=== PATIENT | female | born 1940 | race Caucasian/White ===

== ENCOUNTER 2017-04-24 10:28 | Inpatient (IN) | payer MEDICARE, BC ==
--- NOTE | 2017-04-24 11:30 | EDM.PDOC ---
[id number] 4d DIZZINESS Time Seen by Provider: 04/24/17 11:15 Source of Information: Reports: Patient, Family History Limitations: Reports: No Limitations - History of Present Illness INITIAL COMMENTS - FREE TEXT/NARRATIVE: 76-year-old female sent in from the clinic because of one month of dizziness, hypertension, intermittent headaches, intermittent confusion and a history of renal insufficiency. She had similar symptoms this winter all visiting her daughter out of state and was found to have a UTI. Her primary felt a CT of her head and further labs would be worthwhile. The patient now in the emergency room seems alert, comfortable, oriented but does have some mild confusion and mild hesitancy with answering questions. Her blood pressure is 200/66. They do check her blood pressure fairly frequently at home and her systolic tends to run around 180 Onset: Unknown/Unsure Severity: Mild Associated Symptoms: Reports: Headaches, Nausea/Vomiting, Other (Intermittent dizziness). Denies: Fever/Chills, Shortness of Breath Headache Pain Score (Numeric/FACES): 5 - Related Data Allergies Allergy/AdvReac Type Severity Reaction Status Date / Time atorvastatin [From Lipitor] Allergy Dizziness Verified 04/24/17 10:54 Home Meds: Home Meds Apixaban [Eliquis] 5 mg PO BID 04/24/17 [History] Aspirin [Halfprin] 81 mg PO DAILY 04/24/17 [History] Brimonidine [Alphagan P 0.15% Ophth Soln] 1 drop EYEBOTH BID 04/24/17 [History] Carvedilol 1 tab PO BID 04/24/17 [History] Digoxin 125 mcg PO DAILY 04/24/17 [History] Insulin Aspart [Novolog Flexpen] 4 units SUBCUT TID 04/24/17 [History] Losartan [Cozaar] 50 mg PO BID 04/24/17 [History] Pantoprazole [ProTONIX] 40 mg PO DAILY 04/24/17 [History] Timolol Maleate/PF [Timoptic 0.5% Ocudose Drop] 1 drop EYEBOTH DAILY 04/24/17 [ History] metFORMIN [Glucophage] 500 mg PO DAILY 04/24/17 [History] Past Medical History HEENT History: Reports: Glaucoma Cardiovascular History: Reports: Afib, Hypertension Gastrointestinal History: Reports: GERD Genitourinary History: Reports: UTI, Recurrent Endocrine/Metabolic History: Reports: Diabetes, Type II - Infectious Disease History Infectious Disease History: Reports: Chicken Pox, Measles, Mumps - Past Surgical History GI Surgical History: Reports: Appendectomy, Cholecystectomy, Colostomy Social & Family History - Tobacco Use Smoking Status *Q: Never Smoker Second Hand Smoke Exposure: No - Caffeine Use Caffeine Use: Reports: Soda - Recreational Drug Use Recreational Drug Use: No ED ROS GENERAL - Review of Systems Review Of Systems: See Below Constitutional: Denies: Fever, Chills, Malaise HEENT: Reports: Rhinitis (Persistent runny nose during the spring) Respiratory: Denies: Shortness of Breath, Cough Cardiovascular: Denies: Chest Pain GI/Abdominal: Reports: Nausea, Vomiting (She's had 2 episodes of vomiting over the last few days). Denies: Abdominal Pain Skin: Reports: No Symptoms Neurological: Reports: Dizziness, Headache Psychiatric: Reports: Confusion ED EXAM, GENERAL - Physical Exam Exam: See Below Exam Limited By: No Limitations General Appearance: Alert, No Apparent Distress Eye Exam: Bilateral Eye: Normal Inspection, PERRL Head: Atraumatic Respiratory/Chest: No Respiratory Distress Cardiovascular: Irregularly Irregular. No: Tachycardia Neurological: Alert, Oriented, No Motor/Sensory Deficits Psychiatric: Normal Affect, Normal Mood Skin Exam: Warm Course - Vital Signs Last Recorded V/S: Last Vital Signs Temp 97.1 F 04/25/17 11:07 Pulse 70 04/25/17 11:07 Resp 16 04/25/17 11:07 BP 165/64 H 04/25/17 11:07 Pulse Ox 97 04/25/17 11:07 - Orders/Labs/Meds Orders: Active Orders 24 hr Category Date Time Status CULTURE URINE [RM] Stat Lab 04/24/17 12:45 Results Medication Orders Acetaminophen (Tylenol) 650 mg PO Q4H PRN PRN Reason: Pain (Mild 1-3)/fever Last Admin: 04/25/17 07:59 Dose: 650 mg Apixaban (Eliquis) 5 mg PO BID [facility] Last Admin: 04/25/17 08:01 Dose: 5 mg Admin: 04/24/17 21:03 Dose: 5 mg Aspirin (Halfprin) 81 mg PO DAILY [facility] Last Admin: 04/25/17 08:02 Dose: 81 mg Brimonidine Tartrate (Alphagan P 0.15% Oph Soln) 0 ml EYEBOTH BID [facility] Last Admin: 04/25/17 08:09 Dose: 1 drop Admin: 04/24/17 21:02 Dose: 1 drop Carvedilol (Coreg) 12.5 mg PO BIDMEALS [facility] Last Admin: 04/25/17 08:01 Dose: 12.5 mg Admin: 04/24/17 17:05 Dose: 12.5 mg Dextrose (Glutose 15) 15 gm PO ONETIME PRN PRN Reason: Hypoglycemia Dextrose/Water (Dextrose 50% In Water) 50 ml IV ONETIME PRN PRN Reason: Hypoglycemia Digoxin (Lanoxin) 125 mcg PO DAILY [facility] Last Admin: 04/25/17 08:02 Dose: 125 mcg Docusate Sodium (Colace) 100 mg PO BID PRN PRN Reason: Constipation Hydralazine HCl (Apresoline) 10 mg IVPUSH Q2H PRN PRN Reason: Hypertension Last Admin: 04/25/17 08:02 Dose: 10 mg Admin: 04/25/17 05:06 Dose: 10 mg Admin: 04/25/17 02:37 Dose: 10 mg Admin: 04/24/17 18:41 Dose: 10 mg Hydralazine HCl (Apresoline) 10 mg PO Q6H [facility] Last Admin: 04/25/17 11:05 Dose: 10 mg Sodium Chloride (Normal Saline) 1,000 mls @ 125 mls/hr IV ASDIRECTED [facility] Last Admin: 04/25/17 11:07 Dose: 125 mls/hr Insulin Aspart (Novolog) 4 unit SUBCUT TID [facility] Last Admin: 04/25/17 11:03 Dose: 4 units Admin: 04/24/17 21:03 Dose: 4 units Admin: 04/24/17 17:03 Dose: Not Given Insulin Aspart (Novolog) 0 unit SUBCUT ASDIRECTED [facility] PRN Reason: Protocol Losartan Potassium (Cozaar) 50 mg PO BID [facility] Last Admin: 04/25/17 08:01 Dose: 50 mg Admin: 04/24/17 21:03 Dose: 50 mg Magnesium Hydroxide (Milk Of Magnesia) 30 ml PO Q12H PRN PRN Reason: Constipation Ondansetron HCl (Zofran) 4 mg IV Q4H PRN PRN Reason: Nausea/Vomiting Last Admin: 04/24/17 21:00 Dose: 4 mg Admin: 04/24/17 17:01 Dose: 4 mg Oxycodone HCl (Oxycodone) 5 mg PO Q4H PRN PRN Reason: Pain (moderate 4-6) Pantoprazole Sodium (Protonix) 40 mg PO ACBREAKFAST [facility] Last Admin: 04/25/17 08:03 Dose: 40 mg Polyethylene Glycol (Miralax) 17 gm PO DAILY PRN PRN Reason: Constipation Sodium Chloride (Saline Flush) 10 ml FLUSH ASDIRECTED PRN PRN Reason: Keep Vein Open Timolol Maleate (Timoptic 0.5% Ophth Soln) 0 ml EYEBOTH BEDTIME [facility] Labs: Laboratory Tests 04/24/17 04/24/17 04/24/17 Range/Units 11:28 11:41 11:41 WBC 10.7 (4.5-11.0) K/uL RBC 3.64 (3.30-5.50) M/uL Hgb 11.4 L (12.0-15.0) g/dL Hct 34.8 L (36.0-48.0) % MCV 96 (80-98) fL MCH 31 (27-31) pg MCHC 33 (32-36) % Plt Count 157 (150-400) K/uL Neut % (Auto) 86 H (36-66) % Lymph % (Auto) 8 L (24-44) % [place] % (Auto) 5 (2-6) % Eos % (Auto) 1 L (2-4) % Baso % (Auto) 0 (0-1) % Sodium 133 L (140-148) mmol/L Potassium 4.8 (3.6-5.2) mmol/L Chloride 99 L (100-108) mmol/L Carbon Dioxide 25 (21-32) mmol/L Anion Gap 13.8 (5.0-14.0) mmol/L BUN 39 H (7-18) mg/dL Creatinine 2.5 H (0.6-1.0) mg/dL Est Cr Clr Drug Dosing 16.08 mL/min Estimated GFR (MDRD) 19 L (>60) Glucose 129 H (74-106) mg/dL Calcium 9.4 (8.5-10.1) mg/dL Total Bilirubin 1.2 H (0.2-1.0) mg/dL AST 24 (15-37) U/L ALT 27 (12-78) U/L Alkaline Phosphatase 97 (46-116) U/L Total Protein 7.5 (6.4-8.2) g/dL Albumin 3.7 (3.4-5.0) g/dL Globulin 3.8 H (2.3-3.5) g/dL Albumin/Globulin Ratio 1.0 L (1.2-2.2) Urine Color Yellow Urine Appearance Slightly cloudy Urine pH 5.0 (4.5-8.0) Ur Specific [place] 1.015 (1.008-1.030) Urine Protein Trace (NEGATIVE) mg/dL Urine Glucose (UA) Normal (NEGATIVE) mg/dL Urine Ketones Negative (NEGATIVE) mg/dL Urine Occult Blood Moderate (NEGATIVE) Urine Nitrite Negative (NEGATIVE) Urine Bilirubin Negative (NEGATIVE) Urine Urobilinogen Normal (NORMAL) mg/dL Ur Leukocyte Esterase Negative (NEGATIVE) Urine RBC 0-5 (0-5) Urine WBC 10-20 H (0-5) Ur Epithelial Cells Few Amorphous Sediment Few Urine Bacteria Moderate Urine Mucus Not seen Meds: Medications Generic Name Dose Route Start Last Admin Trade Name Freq PRN Reason Stop Dose Admin Acetaminophen 650 mg 04/24/17 16:09 04/25/17 07:59 Tylenol PO 650 mg Q4H PRN Administration Pain (Mild 1-3)/fever Apixaban 5 mg 04/24/17 21:00 04/25/17 08:01 Eliquis PO 5 mg BID [facility] Administration Aspirin 81 mg 04/25/17 09:00 04/25/17 08:02 Halfprin PO 81 mg DAILY [facility] Administration Brimonidine Tartrate 0 ml 04/24/17 21:00 04/25/17 08:09 Alphagan P 0.15% Ophth Soln EYEBOTH 1 drop BID [facility] Administration Carvedilol 12.5 mg 04/24/17 17:00 04/25/17 08:01 Coreg PO 12.5 mg BIDMEALS [facility] Administration Dextrose 15 gm 04/24/17 16:09 Glutose 15 PO ONETIME PRN Hypoglycemia Dextrose/Water 50 ml 04/24/17 16:09 Dextrose 50% In Water IV ONETIME PRN Hypoglycemia Digoxin 125 mcg 04/25/17 09:00 04/25/17 08:02 Lanoxin PO 125 mcg DAILY [facility] Administration Docusate Sodium 100 mg 04/24/17 16:09 Colace PO BID PRN Constipation Hydralazine HCl 10 mg 04/24/17 16:35 04/25/17 08:02 Apresoline IVPUSH 10 mg Q2H PRN Administration Hypertension Hydralazine HCl 10 mg 04/25/17 10:00 04/25/17 11:05 Apresoline PO 10 mg Q6H [facility] Administration Sodium Chloride 1,000 mls @ 125 mls/hr 04/24/17 16:09 04/25/17 11:07 Normal Saline IV 125 mls/hr ASDIRECTED [facility] Administration Insulin Aspart 4 unit 04/24/17 17:00 04/25/17 11:03 Novolog SUBCUT 4 units TID [facility] Administration Insulin Aspart 0 unit 04/24/17 16:09 Novolog SUBCUT ASDIRECTED [facility] Protocol Losartan Potassium 50 mg 04/24/17 21:00 04/25/17 08:01 Cozaar PO 50 mg BID [facility] Administration Magnesium Hydroxide 30 ml 04/24/17 16:09 Milk Of Magnesia PO Q12H PRN Constipation Ondansetron HCl 4 mg 04/24/17 16:09 04/24/17 21:00 Zofran IV 4 mg Q4H PRN Administration Nausea/Vomiting Oxycodone HCl 5 mg 04/24/17 16:09 Oxycodone PO Q4H PRN Pain (moderate 4-6) Pantoprazole Sodium 40 mg 04/25/17 07:30 04/25/17 08:03 Protonix PO 40 mg ACBREAKFAST [facility] Administration Polyethylene Glycol 17 gm 04/24/17 16:09 Miralax PO DAILY PRN Constipation Sodium Chloride 10 ml 04/24/17 16:09 Saline Flush FLUSH ASDIRECTED PRN Keep Vein Open Timolol Maleate 0 ml 04/25/17 21:00 Timoptic 0.5% Ophth Soln EYEBOTH BEDTIME [facility] Discontinued Medications Generic Name Dose Route Start Last Admin Trade Name Freq PRN Reason Stop Dose Admin Acetaminophen 1,000 mg 04/24/17 12:20 04/24/17 12:45 Tylenol Extra Strength PO 04/24/17 12:21 1,000 mg ONETIME ONE Administration Hydralazine HCl 10 mg 04/24/17 13:33 04/24/17 14:14 Apresoline IVPUSH 04/24/17 13:34 10 mg ONETIME ONE Administration Hydralazine HCl 10 mg 04/24/17 16:09 Apresoline IVPUSH Q4H PRN Hypertension Sodium Chloride 1,000 mls @ 500 mls/hr 04/24/17 13:00 04/24/17 13:17 Normal Saline IV 500 mls/hr ASDIRECTED [facility] Administration Ondansetron HCl 4 mg 04/24/17 12:19 04/24/17 12:23 Zofran Odt PO 04/24/17 12:20 4 mg ONETIME ONE Administration Timolol Maleate 0 ml 04/25/17 09:00 04/25/17 09:28 Timoptic 0.5% Ophth Soln EYEBOTH Not Given DAILY [facility] - Re-Assessments/Exams Free Text/Narrative Re-Assessment/Exam: 04/24/17 12:03 A UA was obtained, along with a CBC, CMP and head CT. It was confirmed that she has taken her blood pressure medications this morning. 04/24/17 13:01 UA showed 10-20 WBCs and moderate bacteria. A culture was initiated. Head CT was negative. CMP was concerning as her GFR is only 19, and creatinine is 2.5, both are significantly worse than recent levels tested at the clinic within the last month. Patient has not had a lot of vomiting but does say she could be "dehydrated" and the family admits she doesn't drink or eat very well. 04/24/17 13:02 Normal saline was initiated at 500 mL an hour and I talked to Dr. Mariee of the hospitalist service to consider hydrating the patient overnight and rechecking renal function. This would also give us an opportunity to monitor blood pressure. Departure - Departure Time of Disposition: 16:25 Disposition: Admitted As Inpatient 67 Condition: fair Clinical Impression: Generalized headaches Renal failure Qualifiers: Renal failure chronicity: acute on chronic Acute renal failure type: unspecified Chronic kidney disease stage: stage 4 (severe) Qualified Code(s): N17.9 - Acute kidney failure, unspecified Hypertension Qualifiers: Hypertension type: unspecified secondary hypertension Qualified Code(s): I15.9 - Secondary hypertension, unspecified - Discharge Information - My Orders Last 24 Hours: My Active Orders 04/24/17 12:45 CULTURE URINE [RM] Stat - Assessment/Plan Last 24 Hours: My Active Orders 04/24/17 12:45 CULTURE URINE [RM] Stat
--- NOTE | 2017-04-24 12:02 | CT ---
CT head without contrast. Indication: Confusion, headaches. Total DLP 655 Findings: No hemorrhage. No mass effect or midline shift. Hypodensities are in the periventricular w angie matter which can be seen in chronic small vessel ischemic disease. Vascular calcifications. Mil d lateral view. Mastoid air cells are clear. Impression: 1. No acute intracranial process by CT.
[2017-04-24] MEDS ORDERED: Ondansetron 4 MG Tab.DIS PO ONE (12:19)
[2017-04-24] MEDS ORDERED: Acetaminophen 500 MG Tab PO ONE (12:20)
[2017-04-24] MEDS ORDERED: Sodium Chloride 0.9% 1,000 ML IV SCH (13:00)
[2017-04-24] MEDS ORDERED: hydrALAZINE 20 MG/ML SDV IVPUSH ONE (13:33)
[2017-04-24] MEDS ORDERED: hydrALAZINE 20 MG/ML SDV IVPUSH PRN (16:09)
[2017-04-24] MEDS ORDERED: Polyethylene Glycol 3350 Powder 17 GM Packet PO PRN (16:09)
[2017-04-24] MEDS ORDERED: Magnesium Hydroxide 400 MG/5 ML Susp 30 ML Cup PO PRN (16:09)
[2017-04-24] MEDS ORDERED: Glucose Gel 15 GM in 37.5 GM Tube PO PRN (16:09)
[2017-04-24] MEDS ORDERED: Sodium Chloride 0.9% 10 ML Syringe FLUSH PRN (16:09)
[2017-04-24] MEDS ORDERED: 50% Dextrose in Water 50 ML Syringe IV PRN (16:09)
[2017-04-24] MEDS ORDERED: Acetaminophen 325 MG Tab PO PRN (16:09)
[2017-04-24] MEDS ORDERED: oxyCODONE 5 MG Tab PO PRN (16:09)
[2017-04-24] MEDS ORDERED: Docusate Sodium 100 MG Cap PO PRN (16:09)
--- NOTE | 2017-04-24 16:09 | PCM.HP ---
H&P History of Present Illness - General Date of Service: 04/24/17 Admit Problem/Dx: Admission Diagnosis/Problem Admission Diagnosis/Problem Hypertension screen Source of Information: Patient, Provider, RN Notes Reviewed History Limitations: Reports: No Limitations - History of Present Illness Initial Comments - Free Text/Narative: Is patient is a 76-year-old woman who is admitted through the emergency department for further evaluation and management of acute on chronic renal insufficiency as well as uncontrolled hypertension. Patient is somewhat vague in her answers and appears to have at least some degree of mild cognitive impairment. There is a history that she's had intermittent episodes of confusion over the past few weeks. She does monitor her blood pressure at home but recently her monitor has not been able. Blood pressure. She was seen and evaluated in the clinic today and noted to have marked hypertension as well is the recent episodes of confusion. She was referred to the emergency department for further evaluation, CT scan of the head was obtained and showed no acute abnormalities. Blood pressure was found to be markedly elevated and laboratory studies show worsening of her renal function with a creatinine in the range of 2.7 and GFR of 19. Urine did show some bacteria and elevation white blood cell count but her urine nitrate and leukocyte esterase were both within normal range. Does report also intermittent episodes of headache and nausea and vomiting occurring on a daily basis usually mid morning. There has been no abdominal pain, no other neurologic symptoms, and no chest pain or shortness of breath. Headache Pain Score (Numeric/FACES): 5 - Related Data Allergies/Adverse Reactions: Allergies Allergy/AdvReac Type Severity Reaction Status Date / Time atorvastatin [From Lipitor] Allergy Dizziness Verified 04/24/17 10:54 Home Medications: Home Meds Apixaban [Eliquis] 5 mg PO BID 04/24/17 [History] Aspirin [Halfprin] 81 mg PO DAILY 04/24/17 [History] Brimonidine [Alphagan P 0.15% Ophth Soln] 1 drop EYEBOTH BID 04/24/17 [History] Carvedilol 1 tab PO BID 04/24/17 [History] Digoxin 125 mcg PO DAILY 04/24/17 [History] Insulin Aspart [Novolog Flexpen] 4 units SUBCUT TID 04/24/17 [History] Losartan [Cozaar] 50 mg PO BID 04/24/17 [History] Pantoprazole [ProTONIX] 40 mg PO DAILY 04/24/17 [History] Timolol Maleate/PF [Timoptic 0.5% Ocudose Drop] 1 drop EYEBOTH DAILY 04/24/17 [ History] metFORMIN [Glucophage] 500 mg PO DAILY 04/24/17 [History] Past Medical History HEENT History: Reports: Glaucoma Cardiovascular History: Reports: Afib, Hypertension Gastrointestinal History: Reports: GERD Genitourinary History: Reports: UTI, Recurrent Endocrine/Metabolic History: Reports: Diabetes, Type II - Infectious Disease History Infectious Disease History: Reports: Chicken Pox, Measles, Mumps - Past Surgical History GI Surgical History: Reports: Appendectomy, Cholecystectomy, Colostomy Social & Family History - Tobacco Use Smoking Status *Q: Never Smoker Second Hand Smoke Exposure: No - Caffeine Use Caffeine Use: Reports: Soda - Recreational Drug Use Recreational Drug Use: No H&P Review of Systems - Review of Systems: Review Of Systems: See Below General: Denies: Fever, Chills, Weakness, Fatigue HEENT: Reports: Headaches Pulmonary: Reports: No Symptoms Cardiovascular: Reports: No Symptoms Gastrointestinal: Reports: Nausea, Vomiting. Denies: Abdominal Pain, Black Stool, Bloody Stool, Constipation, Diarrhea, Decreased Appetite Genitourinary: Reports: No Symptoms Musculoskeletal: Reports: No Symptoms Skin: Reports: No Symptoms Psychiatric: Reports: No Symptoms Neurological: Reports: Confusion, Headache. Denies: Dizziness, Pre-Existing Deficit, Seizure, Syncope Hematologic/Lymphatic: Reports: No Symptoms Immunologic: Reports: No Symptoms Exam - Exam Exam: See Below - Vital Signs Vital Signs: Last Vital Signs Temp 96 F 04/24/17 10:57 Pulse 59 L 04/24/17 15:01 Resp 16 04/24/17 14:21 BP 202/70 H 04/24/17 15:01 Pulse Ox 97 04/24/17 15:01 Weight: 133 lb 6.075 oz - Exam Quality Assessment: DVT Prophylaxis General: Alert, Oriented, Cooperative HEENT: Conjunctiva Clear, EOMI, Hearing Intact, Mucosa Moist & [place], Nares Patent, Normal Nasal Septum, Posterior Pharynx Clear, Pupils Equal, Pupils Reactive, Other (Fundoscopic examination was unremarkable) Neck: Supple, Trachea Midline, +2 Carotid Pulse wo Bruit Lungs: Clear to Auscultation, Normal Respiratory Effort Cardiovascular: Regular Rate, Normal S1, Normal S2, Irregular Rhythm. No: Bradycardia, Tachycardia, Systolic Murmur, Diastolic Murmur Abdomen: Normal Bowel Sounds, Soft Back Exam: Normal Inspection, Full Range of Motion, NT Extremities: 3, Normal Inspection, 10 Skin: Warm, Dry, Intact Neurological: Cranial Nerves Intact, Strength Equal Bilateral, Sensation Intact. No: Focal Deficit Neuro Extensive - Mental Status: Alert, Oriented x3, Normal Mood/Affect, Memory Loss-Recent Events. No: Disorientation to Person, Disorientation to Place, Disorientation to Time, Memory Loss-Remote Events - Patient Data Result Diagrams: 04/24/17 11:41 04/24/17 11:41 *Q Meaningful Use (ADM) - VTE *Q VTE Criteria *Q: - VTE Risk Assess *Q Each Risk Factor Represents 1 Point: None Total Score 1 Point Risk Factors: 0 Each Risk Factor Represents 2 Points: None Total Score 2 Point Risk Factors: 0 Each Risk Factor Represents 3 Points: Age 75 Years or Greater Total Score 3 Point Risk Factors: 3 Each Risk Factor Represents 5 Points: None Total Score 5 Point Risk Factors: 0 Venous Thromboembolism Risk Factor Score *Q: 3 - Stroke *Q Stroke Criteria *Q: - AMI *Q AMI Criteria *Q: Problem List Initiated/Reviewed/Updated: Yes Orders Last 24hrs: Active Orders 24 hr Category Date Time Status Resuscitation Status Routine Resus Stat 04/24/17 13:28 Ordered Medication Orders Sodium Chloride (Normal Saline) 1,000 mls @ 500 mls/hr IV ASDIRECTED [facility] Last Admin: 04/24/17 13:17 Dose: 500 mls/hr Assessment/Plan Comment:: ASSESSMENT AND PLAN UNCONTROLLED HYPERTENSION-I suspect many of her recent symptoms including headache as well as episodes of confusion may be related to marked elevation in blood pressure. Also possible that the nausea and vomiting she is experienced is related to this. She's had a long-standing history of high blood pressure but more recently it has been significantly elevated and associated with worsening of her renal function. -Continue outpatient therapy with Coreg and losartan -Hydralazine 10 mg IV every 4 hours as needed -TSH in a.m. -24-hour urine for aldosterone and catecholamines -Renal ultrasound with Doppler flow studies of the renal arteries, she's not currently a candidate for CTA or MRA because of renal dysfunction. ACUTE ON CHRONIC KIDNEY INJURY-suspect at least some of this is related to her recent uncontrolled blood pressure. -Ultrasound as above -IV fluids for hydration -Closely monitor urine output and renal function during hospital stay EPISODIC CONFUSION-on examination today she does seem to be somewhat vague and having difficulty in remembering recent events. She may be developing dementia as a potential cause of the symptoms. -CT scan of the head was unremarkable -Control blood pressure -Consider outpatient neuropsychiatric evaluation HEADACHES-likely related to uncontrolled blood pressure -Monitor for improvement with blood pressure control EPISODIC NAUSEA AND VOMITING-also possibly related to hypertension, she currently denies any symptoms of abdominal pain or discomfort -Monitor for improvement with blood pressure control -PPI therapy and antiemetic therapy as needed TYPE 2 DIABETES MELLITUS -4 times a day glucometers -Hold metformin because of kidney injury -Low-dose sliding scale NovoLog MAINTENANCE ISSUES -DVT prophylaxis; Lovenox 40 mg subcutaneous daily -GI prophylaxis; PPI therapy -Lin catheter; not indicated -Nutrition; 2 g sodium diet -Nicotine dependence; not required CODE STATUS-FULL CODE ADMISSION STATUS-patient will be admitted to inpatient status, expect at least a 2 night hospital stay for evaluation and management of problems as outlined above. At the time of this admission I do not reasonably expected evaluation and management of this problem will require more than a 96 hour hospital stay. DISPOSITION-anticipate discharge to home after the hospital stay. PRIMARY CARE PROVIDER-Dr. Gomez
[2017-04-24] MEDS: Ondansetron 4 MG/2 ML SDV IV PRN ×2 (17:01→21:00)
[2017-04-24] MEDS: Insulin Aspart 100 Units/ML 3 ML Pen SUBCUT SCH ×2 (17:03→21:03)
[2017-04-24] MEDS: Carvedilol 12.5 MG Tab PO SCH (17:05)
[2017-04-24] MEDS: hydrALAZINE 20 MG/ML SDV IVPUSH PRN (18:41)
[2017-04-24] MEDS: Brimonidine 0.15% Ophth Soln 5 ML Bottle EYEBOTH SCH (21:02)
[2017-04-24] MEDS: Losartan 50 MG Tab PO SCH (21:03)
[2017-04-24] MEDS: Apixaban 5 MG Tab PO SCH (21:03)
[2017-04-25] MEDS: hydrALAZINE 20 MG/ML SDV IVPUSH PRN ×3 (02:37→08:02)
[2017-04-25] MEDS: Apixaban 5 MG Tab PO SCH ×2 (08:01→21:42)
[2017-04-25] MEDS: Losartan 50 MG Tab PO SCH ×2 (08:01→21:43)
[2017-04-25] MEDS: Carvedilol 12.5 MG Tab PO SCH ×2 (08:01→16:05)
[2017-04-25] MEDS: Aspirin 81 MG Tab.EC PO SCH (08:02)
[2017-04-25] MEDS: Digoxin 125 MCG Tab PO SCH (08:02)
[2017-04-25] MEDS: Pantoprazole 40 MG Tab.CR PO SCH (08:03)
[2017-04-25] MEDS: Brimonidine 0.15% Ophth Soln 5 ML Bottle EYEBOTH SCH ×2 (08:09→21:42)
[2017-04-25] MEDS ORDERED: Timolol Maleate 0.5% Ophth Soln 5 ML Bottle EYEBOTH SCH (09:00)
[2017-04-25] MEDS: Insulin Aspart 100 Units/ML 3 ML Pen SUBCUT SCH ×4 (11:03→21:44)
[2017-04-25] MEDS: hydrALAZINE 10 MG Tab PO SCH ×2 (11:05→16:04)
[2017-04-25] MEDS: Sodium Chloride 0.9% 1,000 ML IV SCH (11:07)
--- NOTE | 2017-04-25 17:59 | PCM.PN ---
- General Info Date of Service: 04/25/17 Functional Status: Reports: tolerating diet, urinating - Review of Systems General: Reports: No Symptoms HEENT: Denies: headaches Pulmonary: Reports: no symptoms Cardiovascular: Reports: No Symptoms Gastrointestinal: Reports: No symptoms Neurological: Reports: Confusion Systems Review Comment:: This patient has improved since admission, blood pressures come down but is not yet within the desired range. With improvement in blood pressure her headache has resolved and nausea has significantly improved. She does remain mildly confused. - Patient Data Vitals - most recent: Last Vital Signs Temp 97.1 F 04/25/17 15:21 Pulse 60 04/25/17 16:05 Resp 16 04/25/17 15:21 BP 208/81 H 04/25/17 16:05 Pulse Ox 97 04/25/17 15:21 Weight - most recent: 133 lb 6.075 oz I&O - last 24 hours: Intake & Output 04/25/17 04/25/17 04/25/17 06:59 14:59 22:59 Intake Total 1292 Output Total 200 500 Balance 1092 -500 Lab Results last 24 hrs: Laboratory Results - last 24 hr 04/25/17 04/25/17 04/25/17 Range/Units 05:00 05:00 05:00 WBC 10.6 (4.5-11.0) K/uL RBC 3.50 (3.30-5.50) M/uL Hgb 10.8 L (12.0-15.0) g/dL Hct 33.6 L (36.0-48.0) % MCV 96 (80-98) fL MCH 31 (27-31) pg MCHC 32 (32-36) % Plt Count 143 L (150-400) K/uL Neut % (Auto) 91 H (36-66) % Lymph % (Auto) 5 L (24-44) % Cross % (Auto) 4 (2-6) % Eos % (Auto) 0 L (2-4) % Baso % (Auto) 0 (0-1) % Sodium 135 L (140-148) mmol/L Potassium 5.1 (3.6-5.2) mmol/L Chloride 103 (100-108) mmol/L Carbon Dioxide 20 L (21-32) mmol/L Anion Gap 17.1 H (5.0-14.0) mmol/L BUN 35 H (7-18) mg/dL Creatinine 2.0 H (0.6-1.0) mg/dL Est Cr Clr Drug Dosing 20.10 mL/min Estimated GFR (MDRD) 24 L (>60) Glucose 162 H (74-106) mg/dL Calcium 8.7 (8.5-10.1) mg/dL TSH, Ultra Sensitive 1.487 (0.358-3.740) uIU/mL Med Orders - Current: Current Medications Acetaminophen (Tylenol) 650 mg PO Q4H PRN PRN Reason: Pain (Mild 1-3)/fever Last Admin: 04/25/17 07:59 Dose: 650 mg Apixaban (Eliquis) 5 mg PO BID [facility] Last Admin: 04/25/17 08:01 Dose: 5 mg Aspirin (Halfprin) 81 mg PO DAILY [facility] Last Admin: 04/25/17 08:02 Dose: 81 mg Brimonidine Tartrate (Alphagan P 0.15% Oph Soln) 0 ml EYEBOTH BID [facility] Last Admin: 04/25/17 08:09 Dose: 1 drop Carvedilol (Coreg) 12.5 mg PO BIDMEALS [facility] Last Admin: 04/25/17 16:05 Dose: 12.5 mg Dextrose (Glutose 15) 15 gm PO ONETIME PRN PRN Reason: Hypoglycemia Dextrose/Water (Dextrose 50% In Water) 50 ml IV ONETIME PRN PRN Reason: Hypoglycemia Digoxin (Lanoxin) 125 mcg PO DAILY [facility] Last Admin: 04/25/17 08:02 Dose: 125 mcg Docusate Sodium (Colace) 100 mg PO BID PRN PRN Reason: Constipation Hydralazine HCl (Apresoline) 10 mg IVPUSH Q2H PRN PRN Reason: Hypertension Last Admin: 04/25/17 08:02 Dose: 10 mg Hydralazine HCl (Apresoline) 25 mg PO Q6H [facility] Sodium Chloride (Normal Saline) 1,000 mls @ 125 mls/hr IV ASDIRECTED [facility] Last Admin: 04/25/17 11:07 Dose: 125 mls/hr Insulin Aspart (Novolog) 4 unit SUBCUT TID [facility] Last Admin: 04/25/17 16:02 Dose: 4 units Insulin Aspart (Novolog) 0 unit SUBCUT ASDIRECTED [facility] PRN Reason: Protocol Losartan Potassium (Cozaar) 50 mg PO BID [facility] Last Admin: 04/25/17 08:01 Dose: 50 mg Magnesium Hydroxide (Milk Of Magnesia) 30 ml PO Q12H PRN PRN Reason: Constipation Ondansetron HCl (Zofran) 4 mg IV Q4H PRN PRN Reason: Nausea/Vomiting Last Admin: 04/24/17 21:00 Dose: 4 mg Oxycodone HCl (Oxycodone) 5 mg PO Q4H PRN PRN Reason: Pain (moderate 4-6) Pantoprazole Sodium (Protonix) 40 mg PO ACBREAKFAST [facility] Last Admin: 04/25/17 08:03 Dose: 40 mg Polyethylene Glycol (Miralax) 17 gm PO DAILY PRN PRN Reason: Constipation Sodium Chloride (Saline Flush) 10 ml FLUSH ASDIRECTED PRN PRN Reason: Keep Vein Open Timolol Maleate (Timoptic 0.5% Ophth Soln) 0 ml EYEBOTH BEDTIME [facility] Discontinued Medications Acetaminophen (Tylenol Extra Strength) 1,000 mg PO ONETIME ONE Stop: 04/24/17 12:21 Last Admin: 04/24/17 12:45 Dose: 1,000 mg Hydralazine HCl (Apresoline) 10 mg IVPUSH ONETIME ONE Stop: 04/24/17 13:34 Last Admin: 04/24/17 14:14 Dose: 10 mg Hydralazine HCl (Apresoline) 10 mg IVPUSH Q4H PRN PRN Reason: Hypertension Hydralazine HCl (Apresoline) 10 mg PO Q6H [facility] Last Admin: 04/25/17 16:04 Dose: 10 mg Sodium Chloride (Normal Saline) 1,000 mls @ 500 mls/hr IV ASDIRECTED [facility] Last Admin: 04/24/17 13:17 Dose: 500 mls/hr Ondansetron HCl (Zofran Odt) 4 mg PO ONETIME ONE Stop: 04/24/17 12:20 Last Admin: 04/24/17 12:23 Dose: 4 mg Timolol Maleate (Timoptic 0.5% Ophth Soln) 0 ml EYEBOTH DAILY [facility] Last Admin: 04/25/17 09:28 Dose: Not Given - Exam Quality Assessment: DVT prophylaxis General: alert, cooperative, no acute distress Lungs: Clear to auscultation, Normal respiratory effort Cardiovascular: Regular Rate, Regular Rhythm, No Murmurs Abdomen: bowel sounds present, soft, no tenderness, no distension Extremities: no edema Skin: warm, dry, intact - Problem List Review Problem List Initiated/Reviewed/Updated: Yes - My Orders Last 24 Hours: My Active Orders 04/24/17 16:54 Communication Order [RC] ASDIRECTED 04/24/17 16:57 VMA, URINE 24HR Routine 04/24/17 17:13 METANEPHRINES, UR FRACT 24 HR [REF] Routine 04/25/17 17:52 hydrALAZINE [Apresoline] 25 mg PO Q6H 04/25/17 21:00 GLUCOSE POC LAB TO COLLECT [POC] QIDACANDBED Timolol Maleate [Timoptic 0.5% Ophth Soln] 0 ml EYEBOTH BEDTIME 04/26/17 05:00 BASIC METABOLIC PANEL,BMP [CHEM] Timed CBC WITH AUTO DIFF [HEME] Timed DIGOXIN [CHEM] Timed 04/26/17 07:30 GLUCOSE POC LAB TO COLLECT [POC] QIDACANDBED 04/26/17 11:30 GLUCOSE POC LAB TO COLLECT [POC] QIDACANDBED 04/26/17 13:19 VL Duplex Abd Pel Ret Ltd [US] Stat 04/26/17 16:30 GLUCOSE POC LAB TO COLLECT [POC] QIDACANDBED 04/26/17 21:00 GLUCOSE POC LAB TO COLLECT [POC] QIDACANDBED 04/26/17 Breakfast NPO After Midnight [Nothing per Oral After Midnight Diet] [DIET] 04/27/17 07:30 GLUCOSE POC LAB TO COLLECT [POC] QIDACANDBED 04/27/17 11:30 GLUCOSE POC LAB TO COLLECT [POC] QIDACANDBED 04/27/17 16:30 GLUCOSE POC LAB TO COLLECT [POC] QIDACANDBED 04/27/17 21:00 GLUCOSE POC LAB TO COLLECT [POC] QIDACANDBED 04/28/17 07:30 GLUCOSE POC LAB TO COLLECT [POC] QIDACANDBED 04/28/17 11:30 GLUCOSE POC LAB TO COLLECT [POC] QIDACANDBED 04/28/17 16:30 GLUCOSE POC LAB TO COLLECT [POC] QIDACANDBED 04/28/17 21:00 GLUCOSE POC LAB TO COLLECT [POC] QIDACANDBED 04/29/17 07:30 GLUCOSE POC LAB TO COLLECT [POC] QIDACANDBED 04/29/17 11:30 GLUCOSE POC LAB TO COLLECT [POC] QIDACANDBED 04/29/17 16:30 GLUCOSE POC LAB TO COLLECT [POC] QIDACANDBED 04/29/17 21:00 GLUCOSE POC LAB TO COLLECT [POC] QIDACANDBED 04/30/17 07:30 GLUCOSE POC LAB TO COLLECT [POC] QIDACANDBED 04/30/17 11:30 GLUCOSE POC LAB TO COLLECT [POC] QIDACANDBED 04/30/17 16:30 GLUCOSE POC LAB TO COLLECT [POC] QIDACANDBED 04/30/17 21:00 GLUCOSE POC LAB TO COLLECT [POC] QIDACANDBED 05/01/17 07:30 GLUCOSE POC LAB TO COLLECT [POC] QIDACANDBED 05/01/17 11:30 GLUCOSE POC LAB TO COLLECT [POC] QIDACANDBED 05/01/17 16:30 GLUCOSE POC LAB TO COLLECT [POC] QIDACANDBED 05/01/17 21:00 GLUCOSE POC LAB TO COLLECT [POC] QIDACANDBED 05/02/17 07:30 GLUCOSE POC LAB TO COLLECT [POC] QIDACANDBED 05/02/17 11:30 GLUCOSE POC LAB TO COLLECT [POC] QIDACANDBED 05/02/17 16:30 GLUCOSE POC LAB TO COLLECT [POC] QIDACANDBED 05/02/17 21:00 GLUCOSE POC LAB TO COLLECT [POC] QIDACANDBED 05/03/17 07:30 GLUCOSE POC LAB TO COLLECT [POC] QIDACANDBED 05/03/17 11:30 GLUCOSE POC LAB TO COLLECT [POC] QIDACANDBED 05/03/17 16:30 GLUCOSE POC LAB TO COLLECT [POC] QIDACANDBED 05/03/17 21:00 GLUCOSE POC LAB TO COLLECT [POC] QIDACANDBED 05/04/17 07:30 GLUCOSE POC LAB TO COLLECT [POC] QIDACANDBED 05/04/17 11:30 GLUCOSE POC LAB TO COLLECT [POC] QIDACANDBED 05/04/17 16:30 GLUCOSE POC LAB TO COLLECT [POC] QIDACANDBED 05/04/17 21:00 GLUCOSE POC LAB TO COLLECT [POC] QIDACANDBED 05/05/17 07:30 GLUCOSE POC LAB TO COLLECT [POC] QIDACANDBED 05/05/17 11:30 GLUCOSE POC LAB TO COLLECT [POC] QIDACANDBED - Plan Plan:: ASSESSMENT AND PLAN UNCONTROLLED HYPERTENSION-blood pressure control has improved, not yet within the desired range. Confusion, headache, and nausea have all improved with improved blood pressure control -Continue outpatient therapy with Coreg and losartan -Hydralazine 10 mg IV every 4 hours as needed. -24-hour urine for aldosterone, catecholamines, metanephrine, and VMA -Renal ultrasound with Doppler flow studies of the renal arteries pending in a.m., she's not currently a candidate for CTA or MRA because of renal dysfunction. ACUTE ON CHRONIC KIDNEY INJURY-renal function has improved with hydration -Ultrasound as above -Saline lock IV -Closely monitor urine output and renal function during hospital stay BACTURIA-asymptomatic, elevation in white count, nitrites and leukocyte esterase are within normal range. Likely represents colonization, no evidence of active infection -Hold on antibiotic therapy, continue to monitor EPISODIC CONFUSION-on examination today she does seem to be somewhat vague and having difficulty in remembering recent events. She may be developing dementia as a potential cause of the symptoms. -CT scan of the head was unremarkable -Control blood pressure -Consider outpatient neuropsychiatric evaluation HEADACHES-resolved with improved blood pressure control -Monitor for improvement with blood pressure control EPISODIC NAUSEA AND VOMITING-symptoms have improved significantly since admission, vomiting has resolved she continues to experience mild nausea -Monitor for improvement with blood pressure control -PPI therapy and antiemetic therapy as needed TYPE 2 DIABETES MELLITUS -4 times a day glucometers -Hold metformin because of kidney injury -Low-dose sliding scale NovoLog MAINTENANCE ISSUES -DVT prophylaxis; Lovenox 40 mg subcutaneous daily -GI prophylaxis; PPI therapy -Lin catheter; not indicated -Nutrition; 2 g sodium diet -Nicotine dependence; not required CODE STATUS-FULL CODE ADMISSION STATUS-patient will be admitted to inpatient status, expect at least a 2 night hospital stay for evaluation and management of problems as outlined above. At the time of this admission I do not reasonably expected evaluation and management of this problem will require more than a 96 hour hospital stay. DISPOSITION-anticipate discharge to home after the hospital stay. PRIMARY CARE PROVIDER-Dr. Gomez
[2017-04-25] MEDS: hydrALAZINE 25 MG Tab PO SCH (19:31)
[2017-04-25] MEDS: Timolol Maleate 0.5% Ophth Soln 5 ML Bottle EYEBOTH SCH (21:41)
[2017-04-26] MEDS: Sodium Chloride 0.9% 1,000 ML IV SCH ×2 (00:12→08:14)
[2017-04-26] MEDS: hydrALAZINE 25 MG Tab PO SCH ×4 (00:54→21:49)
[2017-04-26] MEDS: Aspirin 81 MG Tab.EC PO SCH (08:15)
[2017-04-26] MEDS: Pantoprazole 40 MG Tab.CR PO SCH (08:15)
[2017-04-26] MEDS: Apixaban 5 MG Tab PO SCH (08:15)
[2017-04-26] MEDS: Brimonidine 0.15% Ophth Soln 5 ML Bottle EYEBOTH SCH ×2 (08:15→21:46)
[2017-04-26] MEDS: Losartan 50 MG Tab PO SCH ×2 (08:16→21:48)
[2017-04-26] MEDS: Insulin Aspart 100 Units/ML 3 ML Pen SUBCUT SCH ×5 (08:17→21:56)
--- NOTE | 2017-04-26 10:30 | US ---
VL Duplex Abd Pel Ret Ltd, Renal Ltd Bi HISTORY: Hypertension COMPARISON: Duplex ultrasound kidneys 09/14/2011 FINDINGS: Right kidney measures 8.4 cm longitudinally. Left kidney 10.7 cm. Small cortical cyst righ t kidney measuring 8 mm superiorly. No solid masses or hydronephrosis bilaterally. Doppler evaluation of the renal vessels was very limited. Essentially non-diagnostic study as the or igin of the renal arteries could not be visualized. Segmental arteries and arcuate arteries could be evaluated the segmental arteries do not demonstrate increased acceleration time. The arcuate arteri es do demonstrate increased resistive indices however. Impression: 1. Montero scale images of the kidneys demonstrate no acute abnormality. 2. Essentially nondiagnostic Doppler evaluation of the kidneys as the renal arteries could not be we ll visualized in this patient. If there is a high index of suspicion for renal artery stenosis would suggest dedicated MRA exam if patient cannot have MRA exam CTA is suggested.
--- NOTE | 2017-04-26 10:55 | PCM.PN ---
- General Info Date of Service: 04/26/17 Functional Status: Reports: pain controlled, tolerating diet, ambulating - Review of Systems General: Reports: Weakness. Denies: Fever HEENT: Denies: headaches Gastrointestinal: Denies: Nausea Systems Review Comment:: No acute events overnight. Blood pressure had been better but has been elevated this morning. She has not had any nausea. Her headache has resolved. She has not been up and moving around much but is able to get to the bathroom and back. She has not had any fevers. No complaints of chest pain or shortness of breath. - Patient Data Vitals - most recent: Last Vital Signs Temp 36.6 C 04/26/17 08:11 Pulse 69 04/26/17 08:11 Resp 16 04/26/17 08:11 BP 192/88 H 04/26/17 08:16 Pulse Ox 96 04/26/17 08:11 Weight - most recent: 60.5 kg I&O - last 24 hours: Intake & Output 04/25/17 04/26/17 04/26/17 22:59 06:59 14:59 Intake Total 240 3087 Balance 240 3087 Lab Results last 24 hrs: Laboratory Results - last 24 hr 04/26/17 04/26/17 Range/Units 05:18 05:18 WBC 11.9 H (4.5-11.0) K/uL RBC 3.35 (3.30-5.50) M/uL Hgb 10.7 L (12.0-15.0) g/dL Hct 32.3 L (36.0-48.0) % MCV 96 (80-98) fL MCH 32 H (27-31) pg MCHC 33 (32-36) % Plt Count 140 L (150-400) K/uL Neut % (Auto) 84 H (36-66) % Lymph % (Auto) 8 L (24-44) % [place] % (Auto) 7 H (2-6) % Eos % (Auto) 1 L (2-4) % Baso % (Auto) 0 (0-1) % Sodium 134 L (140-148) mmol/L Potassium 4.6 (3.6-5.2) mmol/L Chloride 104 (100-108) mmol/L Carbon Dioxide 21 (21-32) mmol/L Anion Gap 13.6 (5.0-14.0) mmol/L BUN 34 H (7-18) mg/dL Creatinine 1.8 H (0.6-1.0) mg/dL Est Cr Clr Drug Dosing 22.33 mL/min Estimated GFR (MDRD) 27 L (>60) Glucose 141 H (74-106) mg/dL Calcium 8.3 L (8.5-10.1) mg/dL Digoxin 2.63 H (0.90-2.00) ng/mL Med Orders - Current: Current Medications Acetaminophen (Tylenol) 650 mg PO Q4H PRN PRN Reason: Pain (Mild 1-3)/fever Last Admin: 04/25/17 07:59 Dose: 650 mg Apixaban (Eliquis) 5 mg PO BID [facility] Last Admin: 04/26/17 08:15 Dose: 5 mg Aspirin (Halfprin) 81 mg PO DAILY [facility] Last Admin: 04/26/17 08:15 Dose: 81 mg Brimonidine Tartrate (Alphagan P 0.15% Ophth Soln) 0 ml EYEBOTH BID [facility] Last Admin: 04/26/17 08:15 Dose: 1 drop Carvedilol (Coreg) 12.5 mg PO BIDMEALS [facility] Last Admin: 04/25/17 16:05 Dose: 12.5 mg Dextrose (Glutose 15) 15 gm PO ONETIME PRN PRN Reason: Hypoglycemia Dextrose/Water (Dextrose 50% In Water) 50 ml IV ONETIME PRN PRN Reason: Hypoglycemia Docusate Sodium (Colace) 100 mg PO BID PRN PRN Reason: Constipation Hydralazine HCl (Apresoline) 10 mg IVPUSH Q2H PRN PRN Reason: Hypertension Last Admin: 04/25/17 08:02 Dose: 10 mg Insulin Aspart (Novolog) 4 unit SUBCUT TID [facility] Last Admin: 04/26/17 08:17 Dose: 4 units Insulin Aspart (Novolog) 0 unit SUBCUT ASDIRECTED [facility] PRN Reason: Protocol Last Admin: 04/25/17 21:41 Dose: 2 units Losartan Potassium (Cozaar) 50 mg PO BID [facility] Last Admin: 04/26/17 08:16 Dose: 50 mg Magnesium Hydroxide (Milk Of Magnesia) 30 ml PO Q12H PRN PRN Reason: Constipation Ondansetron HCl (Zofran) 4 mg IV Q4H PRN PRN Reason: Nausea/Vomiting Last Admin: 04/24/17 21:00 Dose: 4 mg Oxycodone HCl (Oxycodone) 5 mg PO Q4H PRN PRN Reason: Pain (moderate 4-6) Pantoprazole Sodium (Protonix) 40 mg PO ACBREAKFAST [facility] Last Admin: 04/26/17 08:15 Dose: 40 mg Polyethylene Glycol (Miralax) 17 gm PO DAILY PRN PRN Reason: Constipation Sodium Chloride (Saline Flush) 10 ml FLUSH ASDIRECTED PRN PRN Reason: Keep Vein Open Timolol Maleate (Timoptic 0.5% Ophth Soln) 0 ml EYEBOTH BEDTIME [facility] Last Admin: 04/25/17 21:41 Dose: 1 drop Discontinued Medications Acetaminophen (Tylenol Extra Strength) 1,000 mg PO ONETIME ONE Stop: 04/24/17 12:21 Last Admin: 04/24/17 12:45 Dose: 1,000 mg Digoxin (Lanoxin) 125 mcg PO DAILY [facility] Last Admin: 04/25/17 08:02 Dose: 125 mcg Hydralazine HCl (Apresoline) 10 mg IVPUSH ONETIME ONE Stop: 04/24/17 13:34 Last Admin: 04/24/17 14:14 Dose: 10 mg Hydralazine HCl (Apresoline) 10 mg IVPUSH Q4H PRN PRN Reason: Hypertension Hydralazine HCl (Apresoline) 10 mg PO Q6H [facility] Last Admin: 04/25/17 16:04 Dose: 10 mg Hydralazine HCl (Apresoline) 25 mg PO Q6H [facility] Last Admin: 04/26/17 05:49 Dose: 25 mg Hydralazine HCl (Apresoline) 25 mg PO Q6H [facility] Sodium Chloride (Normal Saline) 1,000 mls @ 500 mls/hr IV ASDIRECTED [facility] Last Admin: 04/24/17 13:17 Dose: 500 mls/hr Sodium Chloride (Normal Saline) 1,000 mls @ 125 mls/hr IV ASDIRECTED [facility] Last Admin: 04/26/17 08:14 Dose: 125 mls/hr Ondansetron HCl (Zofran Odt) 4 mg PO ONETIME ONE Stop: 04/24/17 12:20 Last Admin: 04/24/17 12:23 Dose: 4 mg Timolol Maleate (Timoptic 0.5% Ophth Soln) 0 ml EYEBOTH DAILY [facility] Last Admin: 04/25/17 09:28 Dose: Not Given - Exam Quality Assessment: No: supplemental oxygen General: alert, oriented, cooperative, no acute distress Neck: supple Lungs: Clear to auscultation, Normal respiratory effort Cardiovascular: Regular Rate, Regular Rhythm Abdomen: soft, no tenderness, no distension Extremities: no edema, no cyanosis Skin: warm, dry Psy/Mental Status: alert, normal affect - Problem List Review Problem List Initiated/Reviewed/Updated: Yes - My Orders Last 24 Hours: My Active Orders 04/26/17 09:57 Convert IV to Saline Lock [OM.PC] Routine 04/26/17 10:52 Discontinue Telemetry Monitoring [Cardiac Monitoring Discontinue] [RC] Click to Edit 04/26/17 14:00 hydrALAZINE [Apresoline] 50 mg PO TID 04/26/17 Lunch Low Sodium [Sodium Restricted Diet] [DIET] 04/27/17 05:00 BASIC METABOLIC PANEL,BMP [CHEM] Timed CBC W/O DIFF,HEMOGRAM [HEME] Timed (1) - Plan Plan:: ASSESSMENT AND PLAN ACCELERATED HYPERTENSION - blood pressure control has improved, not yet within the desired range. Presenting symptoms have resolved. Renal ultrasound nondiagnostic. Unable to get an MRA today. -Continue outpatient therapy with carvedilol and losartan -Change hydralazine to 3 times daily -24-hour urine for aldosterone, catecholamines, metanephrine, and VMA pending -Magnetic resonance angiogram of the kidneys when able ACUTE ON CHRONIC KIDNEY INJURY - renal function has continue to improve with current care plan. -Saline lock IV -Closely monitor urine output and renal function during hospital stay BACTURIA - asymptomatic, elevation in white count, nitrites and leukocyte esterase are within normal range. Likely represents colonization, no evidence of active infection -Hold on antibiotic therapy, continue to monitor EPISODIC CONFUSION-on examination today she does seem to be somewhat vague and having difficulty in remembering recent events. She may be developing dementia as a potential cause of the symptoms. -CT scan of the head was unremarkable -Control blood pressure -Consider outpatient neuropsychiatric evaluation HEADACHES - resolved with improved blood pressure control -Monitor for improvement with blood pressure control EPISODIC NAUSEA AND VOMITING - symptoms have improved significantly since admission, vomiting has resolved she continues to experience mild nausea -Monitor for improvement with blood pressure control -PPI therapy and antiemetic therapy as needed TYPE 2 DIABETES MELLITUS - sugars have been ok. -4 times a day glucometers -Hold metformin because of kidney injury -Low-dose sliding scale NovoLog MAINTENANCE ISSUES -DVT prophylaxis; enoxaparin 40 mg subcutaneous daily -GI prophylaxis; PPI therapy -Lin catheter; not indicated -Nutrition; 2 g sodium diet ADMISSION STATUS-patient will be admitted to inpatient status, expect at least a 2 night hospital stay for evaluation and management of problems as outlined above. At the time of this admission I do not reasonably expected evaluation and management of this problem will require more than a 96 hour hospital stay. DISPOSITION-anticipate discharge to home with home care after the hospital stay. Yousif Schroeder M.D.
[2017-04-26] MEDS ORDERED: hydrALAZINE 25 MG Tab PO SCH (12:00)
[2017-04-26] MEDS: Carvedilol 12.5 MG Tab PO SCH (17:35)
[2017-04-26] MEDS: Timolol Maleate 0.5% Ophth Soln 5 ML Bottle EYEBOTH SCH (21:49)
[2017-04-26] MEDS: Apixaban 2.5 MG Tab PO SCH (21:49)
[2017-04-27] MEDS: Digoxin 125 MCG Tab PO SCH (06:39)
[2017-04-27] MEDS: Carvedilol 12.5 MG Tab PO SCH (07:33)
[2017-04-27] MEDS: Pantoprazole 40 MG Tab.CR PO SCH (07:33)
[2017-04-27] MEDS: Losartan 50 MG Tab PO SCH ×2 (07:35→08:29)
[2017-04-27] MEDS: hydrALAZINE 25 MG Tab PO SCH (07:35)
[2017-04-27] MEDS: Apixaban 2.5 MG Tab PO SCH (08:31)
[2017-04-27] MEDS: Aspirin 81 MG Tab.EC PO SCH (08:31)
[2017-04-27] MEDS: Brimonidine 0.15% Ophth Soln 5 ML Bottle EYEBOTH SCH (08:31)
[2017-04-27] MEDS: Insulin Aspart 100 Units/ML 3 ML Pen SUBCUT SCH (08:32)
[2017-04-27] MEDS ORDERED: hydrALAZINE 25 MG Tab PO SCH (09:00)
[2017-04-27 09:06] VITALS: BP 178/80
--- NOTE | 2017-04-27 10:32 | PCM.DCSUM1 ---
Discharge Summary - Hospital Course Brief History: 76 -year-old female with history of secondary hypertension who presented to the clinic with intermittent confusion, headache and nausea. She was directly admitted for management of accelerated hypertension and the above symptoms. - Discharge Data Discharge Date: 04/27/17 Discharge Disposition: Home, W Home Health Agency 06 Condition: Good - Discharge Diagnosis/Problem(s) (1) Accelerated secondary hypertension SNOMED Code(s): 64284597 ICD Code: I15.9 - SECONDARY HYPERTENSION, UNSPECIFIED Status: Acute (2) Acute kidney injury SNOMED Code(s): 30223828 ICD Code: N17.9 - ACUTE KIDNEY FAILURE, UNSPECIFIED Status: Acute (3) Cognitive deficits SNOMED Code(s): 461383090 ICD Code: R41.89 - OTH SYMPTOMS AND SIGNS W COGNITIVE FUNCTIONS AND AWARENESS Status: Acute (4) Generalized headaches SNOMED Code(s): 052008340 ICD Code: R51 - HEADACHE Status: Acute (5) DM II (diabetes mellitus, type II), controlled SNOMED Code(s): 34983032 ICD Code: E11.9 - TYPE 2 DIABETES MELLITUS WITHOUT COMPLICATIONS Status: Chronic Qualifiers: Diabetes mellitus complication status: with unspecified complications Diabetes mellitus group home insulin use: without rat exterminator use Qualified Code( s): E11.8 - Type 2 diabetes mellitus with unspecified complications - Patient Summary/Data Consults: Consultations 04/26/17 10:56 PT Evaluation and Treatment [CONS] Routine Please Evaluate and Treat. PT Reason for Consult: Strengthening This query below is only for informational purposes and is not editable. Admission Diagnosis/Problem: Hypertension screen Labs Pending at D/C: Hypertensive workup including VMA, metanephrines and catecholamines Recommended Follow-up Testing/Procedures: outpatient MRA to evaluate for the severity of renal artery stenosis Hospital Course: Joselin was sent from the clinic to the emergency room for further evaluation with uncontrolled hypertension, headache, nausea and confusion. Workup in the emergency room was remarkable for acute kidney injury with a creatinine of nearly 3 and a GFR less than 20. She had a significant blood pressure elevation with systolic pressures over 200. A head CT was unremarkable. There is no strong evidence for infection. She was started on IV fluids and admitted to the hospital. Additional blood pressure management included hydralazine. Over the next couple of days her blood pressure did slowly improve though there were some fluctuations. Her nausea and headache both resolved with improved blood pressure control. Her confusion seemed to improve but have not completely resolved. We did perform a renal ultrasound to check for the degree of renal artery stenosis but we were unable to get any good vascular studies. We are unable to perform a CT angiogram of the kidneys because of her decreased kidney function. We are unable to complete an MRA of the renal arteries because of machine malfunction. Her kidney function has steadily improved throughout the hospital stay. Her creatinine is down to 1.5 on the day of discharge. Blood pressure has been better controlled with titration of hydralazine up to 75 mg 3 times a day. This is an additional her usual home medications. Physically she feels well at this time. Family believes that she has improved but maybe not quite back to baseline. There is some concern about possible underlying early dementia with her confusion though a mild hypertensive encephalopathy could be considered as well. Neuropsych testing could certainly be considered if the patient is interested but will be deferred to the outpatient setting. This time I believe she is safe for outpatient management. Her blood pressure has improved with the addition of hydralazine. Her kidney function has improved steadily throughout the hospital stay and is nearly back to baseline. She is interested in receiving home health care to help manage medications and will monitor her blood pressure after hospital discharge. This will be set up with Nir. She would benefit from early clinic followup with Dr. Gomez and I did discuss with him the plan at the time of discharge. - Patient Instructions Diet: Low Sodium (no added salt) Activity: As Tolerated Driving: Do Not Drive (at least until your follow up with Dr Gomez) Showering/Bathing: May Shower Notify Provider of: Fever, Increased Pain, Nausea and/or Vomiting Other/Special Instructions: 1. You were in the hospital for management of headache, nausea, accelerated hypertension and acute kidney injury. The nausea and headache have resolved with improved blood pressure control. Your kidney function has improved steadily throughout the hospital stay with hydration and medication adjustments. I do recommend that we add another medication to help control your blood pressure. You should take hydralazine 75 mg 3 times daily. This medication helps to relax the blood vessels allowing for lower blood pressure. 2. I do have some concerns about the confusion and apparent but mild memory difficulties. This may be because of the elevated blood pressures but I do think you would benefit from discussion with Dr Gomez about the possibility of an outpatient followup with a Neuropsychologist for additional testing. 3. Please followup with Dr. Gomez this week to have your blood pressure checked and see how you're doing after hospital discharge. 4. I have placed a referral to home health care. They will provide nursing services to help monitor your blood pressures and help set up medications and ease the transition from hospital to home. 5. Please seek medical attention if you develop fever greater than 101, developed sudden onset of shortness of breath or chest pain, develop a severe headache or persistent vomiting. - Discharge Plan Prescriptions/Med Rec: hydrALAZINE [Apresoline] 75 mg PO TID #135 tab Home Medications: Home Meds Apixaban [Eliquis] 5 mg PO BID 04/24/17 [History] Aspirin [Halfprin] 81 mg PO DAILY 04/24/17 [History] Brimonidine [Alphagan P 0.15% Ophth Soln] 1 drop EYEBOTH BID 04/24/17 [History] Carvedilol 12.5 mg PO BID 04/24/17 [History] Digoxin 125 mcg PO DAILY 04/24/17 [History] Insulin Aspart [Novolog Flexpen] 4 units SUBCUT TID 04/24/17 [History] Losartan [Cozaar] 50 mg PO BID 04/24/17 [History] Pantoprazole [ProTONIX] 40 mg PO DAILY 04/24/17 [History] Timolol Maleate/PF [Timoptic 0.5% Ocudose Drop] 1 drop EYEBOTH DAILY 04/24/17 [ History] metFORMIN [Glucophage] 500 mg PO DAILY 04/24/17 [History] hydrALAZINE [Apresoline] 75 mg PO TID #135 tab 04/27/17 [Rx] Patient Handouts: Hydralazine tablets, Managing Your High Blood Pressure Referrals: Marcin Gomez MD [Primary Care Provider] - (1 week - followup hospital stay for confusion, accelerated hypertension and acute kidney injury) - Discharge Summary/Plan Comment DC Time >30 min.: No (25) - Patient Data Vitals - Most Recent: Last Vital Signs Temp 37.4 C 04/27/17 07:33 Pulse 88 04/27/17 07:33 Resp 16 04/27/17 09:06 BP 178/80 H 04/27/17 09:06 Pulse Ox 94 L 04/27/17 07:33 Weight - Most Recent: 60.5 kg I&O - Last 24 hours: Intake & Output 04/26/17 04/27/17 04/27/17 22:59 06:59 14:59 Intake Total 240 1000 Output Total 1000 Balance 240 -1000 1000 Lab Results - Last 24 hrs: Laboratory Results - last 24 hr 04/27/17 04/27/17 Range/Units 06:02 06:02 WBC 10.9 (4.5-11.0) K/uL RBC 3.53 (3.30-5.50) M/uL Hgb 11.3 L (12.0-15.0) g/dL Hct 33.8 L (36.0-48.0) % MCV 96 (80-98) fL MCH 32 H (27-31) pg MCHC 33 (32-36) % Plt Count 139 L (150-400) K/uL Sodium 135 L (140-148) mmol/L Potassium 4.8 (3.6-5.2) mmol/L Chloride 105 (100-108) mmol/L Carbon Dioxide 20 L (21-32) mmol/L Anion Gap 14.8 H (5.0-14.0) mmol/L BUN 28 H (7-18) mg/dL Creatinine 1.5 H (0.6-1.0) mg/dL Est Cr Clr Drug Dosing 26.80 mL/min Estimated GFR (MDRD) 34 L (>60) Glucose 163 H (74-106) mg/dL Calcium 8.9 (8.5-10.1) mg/dL Digoxin 2.10 H (0.90-2.00) ng/mL Med Orders - Current: Current Medications Acetaminophen (Tylenol) 650 mg PO Q4H PRN PRN Reason: Pain (Mild 1-3)/fever Last Admin: 04/25/17 07:59 Dose: 650 mg Apixaban (Eliquis) 2.5 mg PO BID [facility] Last Admin: 04/27/17 08:31 Dose: 2.5 mg Aspirin (Halfprin) 81 mg PO DAILY [facility] Last Admin: 04/27/17 08:31 Dose: 81 mg Brimonidine Tartrate (Alphagan P 0.15% Ophth Soln) 0 ml EYEBOTH BID [facility] Last Admin: 04/27/17 08:31 Dose: 1 drop Carvedilol (Coreg) 12.5 mg PO BIDMEALS [facility] Last Admin: 04/27/17 07:33 Dose: 12.5 mg Dextrose (Glutose 15) 15 gm PO ONETIME PRN PRN Reason: Hypoglycemia Dextrose/Water (Dextrose 50% In Water) 50 ml IV ONETIME PRN PRN Reason: Hypoglycemia Docusate Sodium (Colace) 100 mg PO BID PRN PRN Reason: Constipation Hydralazine HCl (Apresoline) 10 mg IVPUSH Q2H PRN PRN Reason: Hypertension Last Admin: 04/25/17 08:02 Dose: 10 mg Hydralazine HCl (Apresoline) 75 mg PO TID [facility] Last Admin: 04/27/17 08:30 Dose: 25 mg Insulin Aspart (Novolog) 4 unit SUBCUT TID [facility] Last Admin: 04/27/17 08:32 Dose: 4 units Insulin Aspart (Novolog) 0 unit SUBCUT ASDIRECTED [facility] PRN Reason: Protocol Last Admin: 04/26/17 21:56 Dose: 1 units Losartan Potassium (Cozaar) 50 mg PO BID [facility] Last Admin: 04/27/17 08:29 Dose: Not Given Magnesium Hydroxide (Milk Of Magnesia) 30 ml PO Q12H PRN PRN Reason: Constipation Ondansetron HCl (Zofran) 4 mg IV Q4H PRN PRN Reason: Nausea/Vomiting Last Admin: 04/24/17 21:00 Dose: 4 mg Oxycodone HCl (Oxycodone) 5 mg PO Q4H PRN PRN Reason: Pain (moderate 4-6) Pantoprazole Sodium (Protonix) 40 mg PO ACBREAKFAST [facility] Last Admin: 04/27/17 07:33 Dose: 40 mg Polyethylene Glycol (Miralax) 17 gm PO DAILY PRN PRN Reason: Constipation Sodium Chloride (Saline Flush) 10 ml FLUSH ASDIRECTED PRN PRN Reason: Keep Vein Open Timolol Maleate (Timoptic 0.5% Ophth Soln) 0 ml EYEBOTH BEDTIME [facility] Last Admin: 04/26/17 21:49 Dose: 1 drop Discontinued Medications Acetaminophen (Tylenol Extra Strength) 1,000 mg PO ONETIME ONE Stop: 04/24/17 12:21 Last Admin: 04/24/17 12:45 Dose: 1,000 mg Apixaban (Eliquis) 5 mg PO BID [facility] Last Admin: 04/26/17 08:15 Dose: 5 mg Digoxin (Lanoxin) 125 mcg PO DAILY [facility] Last Admin: 04/27/17 06:39 Dose: Not Given Hydralazine HCl (Apresoline) 10 mg IVPUSH ONETIME ONE Stop: 04/24/17 13:34 Last Admin: 04/24/17 14:14 Dose: 10 mg Hydralazine HCl (Apresoline) 10 mg IVPUSH Q4H PRN PRN Reason: Hypertension Hydralazine HCl (Apresoline) 10 mg PO Q6H [facility] Last Admin: 04/25/17 16:04 Dose: 10 mg Hydralazine HCl (Apresoline) 25 mg PO Q6H [facility] Last Admin: 04/26/17 05:49 Dose: 25 mg Hydralazine HCl (Apresoline) 25 mg PO Q6H [facility] Hydralazine HCl (Apresoline) 50 mg PO TID [facility] Last Admin: 04/27/17 07:35 Dose: 50 mg Sodium Chloride (Normal Saline) 1,000 mls @ 500 mls/hr IV ASDIRECTED [facility] Last Admin: 04/24/17 13:17 Dose: 500 mls/hr Sodium Chloride (Normal Saline) 1,000 mls @ 125 mls/hr IV ASDIRECTED [facility] Last Admin: 04/26/17 08:14 Dose: 125 mls/hr Ondansetron HCl (Zofran Odt) 4 mg PO ONETIME ONE Stop: 04/24/17 12:20 Last Admin: 04/24/17 12:23 Dose: 4 mg Timolol Maleate (Timoptic 0.5% Ophth Soln) 0 ml EYEBOTH DAILY [facility] Last Admin: 04/25/17 09:28 Dose: Not Given *Q Meaningful Use (DIS) - VTE *Q VTE Criteria *Q: VTE Pharmacological Contraindications *Q: High INR Value - Stroke *Q Stroke Criteria *Q: - AMI *Q AMI Criteria *Q:
== END 2017-04-27 11:18 | disposition home health service (06) | DRG 683 ==
LOC: JP.ED 10:28 → JP.MS 13:26
PROVIDERS: ADMIT Hospitalist; ATTEND Internal Medicine
DX: I12.9 Hypertensive chronic kidney disease with stage 1 through stage 4 chronic kidney disease, or unspecified chronic kidney disease (principal); N17.9 Acute kidney failure, unspecified; I67.4 Hypertensive encephalopathy; N18.9 Chronic kidney disease, unspecified; E11.22 Type 2 diabetes mellitus with diabetic chronic kidney disease; R41.0 Disorientation, unspecified; Z79.4 Long term (current) use of insulin; R42 Dizziness and giddiness; R41.89 Other symptoms and signs involving cognitive functions and awareness; R51 Headache; K21.9 Gastro-esophageal reflux disease without esophagitis; Z87.440 Personal history of urinary (tract) infections; H40.9 Unspecified glaucoma; F03.90 Unspecified dementia, unspecified severity, without behavioral disturbance, psychotic disturbance, mood disturbance, and anxiety; Z88.8 Allergy status to other drugs, medicaments and biological substances
CPT/HCPCS: 36415; 70450 ×2; 80053; 81001; 82962; 83835; 85025; 87086; 99285; A9270 ×2; J7040; 76775-26; 76775-50; 80048; 80162; 82088; 82384; 82570; 84443; 84585; 85027; 93976; 93976-26; 96374; 96376; 97161-GP; J0360; J2405

== ENCOUNTER 2017-04-27 18:33 | Inpatient (IN) | payer MEDICARE, BC ==
--- NOTE | 2017-04-27 20:57 | PCM.HP ---
H&P History of Present Illness - General Date of Service: 04/27/17 Admit Problem/Dx: Admission Diagnosis/Problem Admission Diagnosis/Problem Malignant hypertension Source of Information: Patient, Other (friend) History Limitations: Reports: Altered Mental Status - History of Present Illness Initial Comments - Free Text/Narative: Joselin presents to the emergency room tonight at the recommendation of her home health nurse. She was discharged from the hospital this afternoon after being treated for accelerated hypertension and confusion. She seemed to be doing well at the time of discharge her blood pressure was acceptable before she left. When her home health nurse checked her blood pressure was noted to be elevated at 240 systolic and she was sent to the emergency room. Her blood pressure here is elevated at 230. She tells me that she feels fine and does not want to be here. She does not endorse headache, blurry vision, chest pain, shortness of breath. She says that she feels fine and her being here is silly. Her neighbor who brought her here is very concerned about her confusion. She believes that this is a big change from her baseline. The patient is somewhat paranoid and thinks that I am the financial aids officer even after introducing myself as Dr. Schroeder in showing her the name july. She took her evening medications including carvedilol, losartan and hydralazine and her blood pressure is already down to 170 systolic. Given her apparent difficulty with medications at home as I don't believe she took her afternoon dose of hydralazine we are going to keep her in the hospital until we can set up a better plan for medication management at home. - Related Data Allergies/Adverse Reactions: Allergies Allergy/AdvReac Type Severity Reaction Status Date / Time atorvastatin [From Lipitor] Allergy Dizziness Verified 04/24/17 10:54 Home Medications: Home Meds Apixaban [Eliquis] 5 mg PO BID 04/24/17 [History] Aspirin [Halfprin] 81 mg PO DAILY 04/24/17 [History] Brimonidine [Alphagan P 0.15% Ophth Soln] 1 drop EYEBOTH BID 04/24/17 [History] Carvedilol 12.5 mg PO BID 04/24/17 [History] Digoxin 125 mcg PO DAILY 04/24/17 [History] Insulin Aspart [Novolog Flexpen] 4 units SUBCUT TID 04/24/17 [History] Losartan [Cozaar] 50 mg PO BID 04/24/17 [History] Pantoprazole [ProTONIX] 40 mg PO DAILY 04/24/17 [History] Timolol Maleate/PF [Timoptic 0.5% Ocudose Drop] 1 drop EYEBOTH DAILY 04/24/17 [ History] metFORMIN [Glucophage] 500 mg PO DAILY 04/24/17 [History] hydrALAZINE [Apresoline] 75 mg PO TID #135 tab 04/27/17 [Rx] Past Medical History HEENT History: Reports: Glaucoma Cardiovascular History: Reports: Afib, Hypertension Gastrointestinal History: Reports: GERD Genitourinary History: Reports: UTI, Recurrent Endocrine/Metabolic History: Reports: Diabetes, Type II - Infectious Disease History Infectious Disease History: Reports: Chicken Pox, Measles, Mumps - Past Surgical History GI Surgical History: Reports: Appendectomy, Cholecystectomy, Colostomy Social & Family History - Family History Neurological: Reports: MS (daughter) - Tobacco Use Smoking Status *Q: Never Smoker Second Hand Smoke Exposure: No - Caffeine Use Caffeine Use: Reports: Coffee - Alcohol Use Alcohol Use History: No - Recreational Drug Use Recreational Drug Use: No H&P Review of Systems - Review of Systems: Review Of Systems: See Below Free Text/Narrative: A complete 12 point review of systems was obtained. Pertinent positives and negatives are noted in the history of present illness. All other systems were reviewed and were negative except as noted. Exam - Exam Exam: See Below - Vital Signs Vital Signs: Last Vital Signs Temp 36.4 C 04/27/17 19:46 Pulse 67 04/27/17 19:46 Resp 16 04/27/17 19:46 BP 231/116 H 04/27/17 19:46 Pulse Ox 98 04/27/17 19:46 Weight: 66.9 kg - Exam Quality Assessment: No: Supplemental Oxygen General: Alert, Cooperative, Mild Distress. No: Oriented HEENT: Conjunctiva Clear, Mucosa Moist & Grandin. No: Scleral Icterus Neck: Supple, Trachea Midline. No: Lymphadenopathy Lungs: Clear to Auscultation, Normal Respiratory Effort Cardiovascular: Regular Rate, Regular Rhythm. No: Systolic Murmur Abdomen: Soft. No: Distention, Tenderness Back Exam: Normal Inspection, Full Range of Motion Extremities: Normal Inspection, Normal Pulses. No: Cyanosis Peripheral Pulses: 2+: Dorsalis Pedis (L), Dorsalis Pedis (R) Skin: Warm, Dry, Intact Neuro Extensive - Mental Status: Alert, Nl Response to Commands. No: Oriented x3 Neuro Extensive - Motor, Sensory, Reflexes: CN II-XII Intact. No: Dysarthria, Abnormal Motor, Tremor Psychiatric: Alert, Anxious *Q Meaningful Use (ADM) - VTE *Q VTE Criteria *Q: - VTE Risk Assess *Q Each Risk Factor Represents 1 Point: None Total Score 1 Point Risk Factors: 0 Each Risk Factor Represents 2 Points: None Total Score 2 Point Risk Factors: 0 Each Risk Factor Represents 3 Points: Age 75 Years or Greater, Family Hx of DVT or PE Total Score 3 Point Risk Factors: 6 Each Risk Factor Represents 5 Points: None Total Score 5 Point Risk Factors: 0 Venous Thromboembolism Risk Factor Score *Q: 6 - Stroke *Q Stroke Criteria *Q: - AMI *Q AMI Criteria *Q: - Problem List (1) Delirium due to another medical condition SNOMED Code(s): 8765136 ICD Code: F05 - DELIRIUM DUE TO KNOWN PHYSIOLOGICAL CONDITION Status: Acute Current Visit: Yes (2) Accelerated secondary hypertension SNOMED Code(s): 41020405 ICD Code: I15.9 - SECONDARY HYPERTENSION, UNSPECIFIED Status: Acute Current Visit: No (3) DM II (diabetes mellitus, type II), controlled SNOMED Code(s): 54814353 ICD Code: E11.9 - TYPE 2 DIABETES MELLITUS WITHOUT COMPLICATIONS Status: Chronic Current Visit: No Qualifiers: Diabetes mellitus complication status: with unspecified complications Diabetes mellitus longterm insulin use: without longterm use Qualified Code( s): E11.8 - Type 2 diabetes mellitus with unspecified complications Problem List Initiated/Reviewed/Updated: Yes Orders Last 24hrs: Active Orders 24 hr Category Date Time Status Patient Status Manage Transfer [TRANSFER] Routine ADT 04/27/17 20:47 Ordered Resuscitation Status Routine Resus Stat 04/27/17 20:48 Ordered Assessment/Plan Comment:: Assessment and plan - Accelerated hypertension - I don't believe the patient had her afternoon dose of hydralazine. Blood pressure quite a bit better after taking her evening pills. I suspect that her hypertension is contributing to her confusion as discussed below. She does have a history of renal artery stenosis but we are unable to complete testing during the week last week. She's not safe for outpatient management with significant elevations occurring even within a few hours of recent hospital discharge and unsafe medication management plan at home. -Continue losartan, carvedilol and hydralazine -Close monitoring of blood pressures Delirium - recent head CT was normal, suspect hypertensive encephalopathy. Hopefully with more consistent blood pressure control her mental status will return to baseline. She is currently not safe to be home alone and should not be in charge of her medications. Hopefully with some time and stable blood pressures she will get back to her baseline. Mild underlying dementia certainly is a possibility. No evidence for infection. -Blood pressure control as above -Lorazepam as needed for anxiety Chronic atrial fibrillation - well rate controlled. Chronically anticoagulated. -Continue home medications Maintenance issues - - DVT prophylaxis - eliquis - GI prophylaxis - PPI - Nutrition - low sodium diet - Lin catheter - not indicated CODE STATUS - full code Admission justification - This patient will be admitted for inpatient services and is medically appropriate meeting medical necessity for inpatient admission as outlined in my documentation. I reasonably expect the patient will require inpatient services that span a period time over 2 midnights. I reasonably expect this patient to be discharged or transferred within 96 hours [facility]. Disposition - anticipate discharge home after the hospital stay, likely with home health care. Primary care physician - Dr Jason Schroeder M.D.
[2017-04-27] MEDS ORDERED: Acetaminophen 325 MG Tab PO PRN (21:46)
[2017-04-27] MEDS ORDERED: Polyethylene Glycol 3350 Powder 17 GM Packet PO PRN (21:46)
[2017-04-27] MEDS ORDERED: Ondansetron 4 MG Tab.DIS PO PRN (21:46)
[2017-04-27] MEDS ORDERED: Sodium Chloride 0.9% 10 ML Syringe FLUSH PRN (21:46)
[2017-04-27] MEDS: BRIMONIDINE 0.15% EYEBOTH SCH (22:55)
[2017-04-28] MEDS: Apixaban 5 MG Tab PO SCH ×4 (00:21→21:16)
[2017-04-28] MEDS: Melatonin 3 MG Tab PO SCH ×2 (00:22→21:17)
[2017-04-28] MEDS: Pantoprazole 40 MG Tab.CR PO SCH (08:29)
[2017-04-28] MEDS: BRIMONIDINE 0.15% EYEBOTH SCH ×2 (08:30→21:16)
[2017-04-28] MEDS: hydrALAZINE 25 MG Tab PO SCH ×3 (08:31→20:13)
[2017-04-28] MEDS: Carvedilol 12.5 MG Tab PO SCH ×2 (08:32→23:11)
[2017-04-28] MEDS: Losartan 50 MG Tab PO SCH ×2 (08:34→20:14)
[2017-04-28] MEDS: Aspirin 81 MG Tab.EC PO SCH (08:35)
[2017-04-28] MEDS ORDERED: Pantoprazole 40 MG Tab.CR PO SCH (09:00)
[2017-04-28] MEDS ORDERED: Timolol Maleate 0.5% Ophth Soln 5 ML Bottle EYEBOTH SCH (09:00)
[2017-04-28] MEDS ORDERED: metFORMIN 500 MG Tab PO SCH (09:00)
[2017-04-28] MEDS ORDERED: Digoxin 125 MCG Tab PO SCH (09:00)
[2017-04-28] MEDS ORDERED: ELIQUIS 5 MG PO SCH (09:00)
--- NOTE | 2017-04-28 11:38 | PCM.PN ---
- General Info Date of Service: 04/28/17 Functional Status: Reports: pain controlled, tolerating diet, ambulating - Review of Systems Pulmonary: Denies: shortness of breath Neurological: Reports: Confusion. Denies: Headache Systems Review Comment:: No acute events since admission. Blood pressure control has been adequate. No complaints of headache, blurry vision, chest pain or shortness of breath. Patient reports that she feels well. She continues to be confused but there have been no behavior issues. No fevers. - Patient Data Vitals - most recent: Last Vital Signs Temp 36.2 C 04/28/17 07:31 Pulse 52 L 04/28/17 10:46 Resp 16 04/28/17 07:31 BP 158/64 H 04/28/17 10:46 Pulse Ox 100 04/28/17 10:46 Weight - most recent: 66.9 kg I&O - last 24 hours: Intake & Output 04/27/17 04/28/17 04/28/17 22:59 06:59 14:59 Intake Total 400 Balance 400 Lab Results last 24 hrs: Laboratory Results - last 24 hr 04/27/17 04/28/17 04/28/17 Range/Units 23:12 05:11 05:11 WBC 9.0 (4.5-11.0) K/uL RBC 3.24 L (3.30-5.50) M/uL Hgb 10.1 L (12.0-15.0) g/dL Hct 31.0 L (36.0-48.0) % MCV 96 (80-98) fL MCH 31 (27-31) pg MCHC 33 (32-36) % Plt Count 129 L (150-400) K/uL Neut % (Auto) 74 H (36-66) % Lymph % (Auto) 15 L (24-44) % [place] % (Auto) 9 H (2-6) % Eos % (Auto) 2 (2-4) % Baso % (Auto) 0 (0-1) % ESR 13 (0-25) mm/hr Sodium 132 L (140-148) mmol/L Potassium 4.6 (3.6-5.2) mmol/L Chloride 103 (100-108) mmol/L Carbon Dioxide 20 L (21-32) mmol/L Anion Gap 13.6 (5.0-14.0) mmol/L BUN 27 H (7-18) mg/dL Creatinine 1.6 H (0.6-1.0) mg/dL Est Cr Clr Drug Dosing 25.12 mL/min Estimated GFR (MDRD) 31 L (>60) Glucose 278 H (74-106) mg/dL Calcium 8.4 L (8.5-10.1) mg/dL Magnesium 1.6 L (1.8-2.4) mg/dL Total Bilirubin 0.7 (0.2-1.0) mg/dL AST 35 (15-37) U/L ALT 61 D (12-78) U/L Alkaline Phosphatase 101 (46-116) U/L Total Protein 6.0 L (6.4-8.2) g/dL Albumin 3.1 L (3.4-5.0) g/dL Globulin 2.9 (2.3-3.5) g/dL Albumin/Globulin Ratio 1.1 L (1.2-2.2) Urine Color Yellow Urine Appearance Clear Urine pH 6.0 (4.5-8.0) Ur Specific [place] 1.005 L (1.008-1.030) Urine Protein Negative (NEGATIVE) mg/dL Urine Glucose (UA) 50 H (NEGATIVE) mg/dL Urine Ketones Negative (NEGATIVE) mg/dL Urine Occult Blood Negative (NEGATIVE) Urine Nitrite Negative (NEGATIVE) Urine Bilirubin Negative (NEGATIVE) Urine Urobilinogen Normal (NORMAL) mg/dL Ur Leukocyte Esterase Large (NEGATIVE) Urine RBC 0-5 (0-5) Urine WBC 5-10 H (0-5) Ur Epithelial Cells Few Amorphous Sediment Not seen Urine Bacteria Moderate Urine Mucus Not seen Med Orders - Current: Current Medications Acetaminophen (Tylenol) 650 mg PO Q4H PRN PRN Reason: Pain (Mild 1-3)/fever Apixaban (Eliquis) 5 mg PO BID [facility] Last Admin: 04/28/17 08:35 Dose: 5 mg Aspirin (Halfprin) 81 mg PO DAILY [facility] Last Admin: 04/28/17 08:35 Dose: 81 mg Brimonidine Tartrate (Alphagan P 0.15% Ophth Soln) 0 ml EYEBOTH BID [facility] Last Admin: 04/28/17 08:30 Dose: 1 drop Carvedilol (Coreg) 12.5 mg PO BID [facility] Last Admin: 04/28/17 08:32 Dose: 12.5 mg Hydralazine HCl (Apresoline) 75 mg PO TID [facility] Last Admin: 04/28/17 08:31 Dose: 75 mg Insulin Aspart (Novolog) 4 unit SUBCUT TIDMEALS [facility] Insulin Aspart (Novolog) 0 unit SUBCUT ASDIRECTED [facility] PRN Reason: Protocol Lorazepam (Ativan) 0.5 mg PO Q4H PRN PRN Reason: Anxiety Losartan Potassium (Cozaar) 50 mg PO BID [facility] Last Admin: 04/28/17 08:34 Dose: 50 mg Melatonin (Melatonin) 9 mg PO BEDTIME [facility] Last Admin: 04/28/17 00:22 Dose: 9 mg Ondansetron HCl (Zofran Odt) 4 mg PO Q6H PRN PRN Reason: Nausea able to take PO Pantoprazole Sodium (Protonix) 40 mg PO ACBREAKFAST [facility] Last Admin: 04/28/17 08:29 Dose: 40 mg Polyethylene Glycol (Miralax) 17 gm PO DAILY PRN PRN Reason: Constipation Sodium Chloride (Saline Flush) 10 ml FLUSH ASDIRECTED PRN PRN Reason: Keep Vein Open Timolol Maleate (Timoptic 0.5% Ophth Soln) 0 ml EYEBOTH DAILY [facility] Last Admin: 04/28/17 08:36 Dose: 1 drop Discontinued Medications Apixaban (Eliquis) 5 mg PO BID [facility] Last Admin: 04/28/17 02:17 Dose: Not Given Digoxin (Lanoxin) 125 mcg PO DAILY [facility] Metformin HCl (Glucophage) 500 mg PO DAILY [facility] Patient's Own MedicationEliquis 5mg Tab 1 each PO BID [facility] Last Admin: 04/28/17 00:23 Dose: 1 each - Exam Quality Assessment: No: supplemental oxygen General: alert, cooperative, no acute distress. No: oriented Neck: supple Lungs: Normal respiratory effort Cardiovascular: Regular Rate, Regular Rhythm Abdomen: soft, no distension Extremities: no edema, no cyanosis Skin: warm, dry - Problem List & Annotations (1) Delirium due to another medical condition SNOMED Code(s): 1911641 Code(s): F05 - DELIRIUM DUE TO KNOWN PHYSIOLOGICAL CONDITION Status: Acute Current Visit: Yes (2) Accelerated secondary hypertension SNOMED Code(s): 28652248 Code(s): I15.9 - SECONDARY HYPERTENSION, UNSPECIFIED Status: Acute Current Visit: No (3) DM II (diabetes mellitus, type II), controlled SNOMED Code(s): 56282625 Code(s): E11.9 - TYPE 2 DIABETES MELLITUS WITHOUT COMPLICATIONS Status: Chronic Current Visit: No Qualifiers: Diabetes mellitus complication status: with unspecified complications Diabetes mellitus group home insulin use: without group home use Qualified Code( s): E11.8 - Type 2 diabetes mellitus with unspecified complications - Problem List Review Problem List Initiated/Reviewed/Updated: Yes - My Orders Last 24 Hours: My Active Orders 04/27/17 20:48 Resuscitation Status Routine 04/27/17 21:46 Patient Status [ADT] Routine Ambulate [RC] QID Intake and Output [RC] QSHIFT Notify Provider Vital Signs [RC] ASDIRECTED Oxygen Therapy [RC] PRN Up With Assistance [RC] ASDIRECTED VTE/DVT Education [RC] Per Unit Routine Vital Signs [RC] Q4H Acetaminophen [Tylenol] 650 mg PO Q4H PRN Brimonidine [Alphagan P 0.15% Ophth Soln] 0 ml EYEBOTH BID LORazepam [Ativan] 0.5 mg PO Q4H PRN Melatonin 9 mg PO BEDTIME Ondansetron [Zofran ODT] 4 mg PO Q6H PRN Polyethylene Glycol 3350 [MiraLAX] 17 gm PO DAILY PRN Sodium Chloride 0.9% [Saline Flush] 10 ml FLUSH ASDIRECTED PRN Saline Lock Insert [OM.PC] Routine Sequential Compression Device [OM.PC] Per Unit Routine 04/28/17 07:30 Pantoprazole [ProTONIX] 40 mg PO ACBREAKFAST 04/28/17 08:12 Diabetes Education [RC] Click to Edit Notify Provider [RC] PRN 04/28/17 08:15 Insulin Aspart [NovoLOG] See Protocol SUBCUT ASDIRECTED 04/28/17 09:00 Apixaban [Eliquis] 5 mg PO BID Aspirin [Halfprin] 81 mg PO DAILY Carvedilol [Coreg] 12.5 mg PO BID Losartan [Cozaar] 50 mg PO BID Timolol Maleate [Timoptic 0.5% Ophth Soln] 0 ml EYEBOTH DAILY hydrALAZINE [Apresoline] 75 mg PO TID 04/28/17 12:00 Insulin Aspart [NovoLOG] 4 unit SUBCUT TIDMEALS 04/28/17 16:30 GLUCOSE POC LAB TO COLLECT [POC] QIDACANDBED 04/28/17 21:00 GLUCOSE POC LAB TO COLLECT [POC] QIDACANDBED 04/29/17 05:00 BASIC METABOLIC PANEL,BMP [CHEM] Timed CBC W/O DIFF,HEMOGRAM [HEME] Timed (1) DIGOXIN [CHEM] Timed 04/29/17 07:00 Ang Abdomen wo Cont [MR] Routine Brain wo Cont [MR] Routine 04/29/17 07:30 GLUCOSE POC LAB TO COLLECT [POC] QIDACANDBED 04/29/17 11:30 GLUCOSE POC LAB TO COLLECT [POC] QIDACANDBED 04/29/17 16:30 GLUCOSE POC LAB TO COLLECT [POC] QIDACANDBED 04/29/17 21:00 GLUCOSE POC LAB TO COLLECT [POC] QIDACANDBED 04/30/17 07:30 GLUCOSE POC LAB TO COLLECT [POC] QIDACANDBED 04/30/17 11:30 GLUCOSE POC LAB TO COLLECT [POC] QIDACANDBED 04/30/17 16:30 GLUCOSE POC LAB TO COLLECT [POC] QIDACANDBED 04/30/17 21:00 GLUCOSE POC LAB TO COLLECT [POC] QIDACANDBED 05/01/17 07:30 GLUCOSE POC LAB TO COLLECT [POC] QIDACANDBED 05/01/17 11:30 GLUCOSE POC LAB TO COLLECT [POC] QIDACANDBED 05/01/17 16:30 GLUCOSE POC LAB TO COLLECT [POC] QIDACANDBED 05/01/17 21:00 GLUCOSE POC LAB TO COLLECT [POC] QIDACANDBED 05/02/17 07:30 GLUCOSE POC LAB TO COLLECT [POC] QIDACANDBED 05/02/17 11:30 GLUCOSE POC LAB TO COLLECT [POC] QIDACANDBED 05/02/17 16:30 GLUCOSE POC LAB TO COLLECT [POC] QIDACANDBED 05/02/17 21:00 GLUCOSE POC LAB TO COLLECT [POC] QIDACANDBED 05/03/17 07:30 GLUCOSE POC LAB TO COLLECT [POC] QIDACANDBED 05/03/17 11:30 GLUCOSE POC LAB TO COLLECT [POC] QIDACANDBED 05/03/17 16:30 GLUCOSE POC LAB TO COLLECT [POC] QIDACANDBED - Plan Plan:: Assessment and plan - Accelerated hypertension - good blood pressure control since admission. No symptoms at this time. -Continue losartan, carvedilol and hydralazine -Close monitoring of blood pressures -MRA of the renal arteries in the morning Delirium - recent head CT was normal, suspect hypertensive encephalopathy. Seems a little bit more clear today but still confused and not safe for outpatient management at this time. -Blood pressure control as above -Lorazepam as needed for anxiety -MRI of the brain in the morning Chronic atrial fibrillation - well rate controlled. Chronically anticoagulated. -Continue home medications Maintenance issues - - DVT prophylaxis - eliquis - GI prophylaxis - PPI - Nutrition - low sodium diet Disposition - anticipate discharge home after the hospital stay, likely with home health care. Yousif Schroeder M.D.
[2017-04-28] MEDS: Insulin Aspart 100 Units/ML 3 ML Pen SUBCUT SCH ×5 (12:14→21:18)
[2017-04-29] MEDS: Pantoprazole 40 MG Tab.CR PO SCH (07:42)
[2017-04-29] MEDS: Insulin Aspart 100 Units/ML 3 ML Pen SUBCUT SCH ×7 (07:42→21:18)
[2017-04-29] MEDS: BRIMONIDINE 0.15% EYEBOTH SCH ×2 (08:57→20:40)
[2017-04-29] MEDS: LORazepam 0.5 MG Tab PO PRN (09:07)
--- NOTE | 2017-04-29 10:50 | MR ---
Brain wo Cont HISTORY: Delirium COMPARISON: Head CT from 24 Apr 2017. TECHNIQUE: The brain was imaged in the axial, sagittal, and coronal planes utilizing T1, gradient ec ho, T2, FLAIR, and diffusion-weighted techniques. FINDINGS:There are a few scattered foci of signal hyperintensity involving the deep white matter on the long TR sequences. There is no associated mass effect or edema. The findings are most consistent with chronic ischemic microvascular changes of the white matter. There are no space-occupying lesio ns. There is no hemorrhage, mass effect, or edema. Diffusion-weighted images demonstrate no findings for acute ischemia. The orbital structures appear unremarkable. There is mild consolidation of the mastoid air cells.. Normal appearing flow voids are demonstrated throughout the cerebral vasculature . IMPRESSION 1. Age-related involutional changes of the brain. 2. No acute intracranial abnormalities are demonstrated.
[2017-04-29] MEDS ORDERED: Gadoteridol 279.3 MG/ML 15 ML SDV IV SCH (11:00)
[2017-04-29] MEDS: hydrALAZINE 25 MG Tab PO SCH ×3 (11:13→20:42)
[2017-04-29] MEDS: Carvedilol 12.5 MG Tab PO SCH ×2 (11:14→20:40)
[2017-04-29] MEDS: Losartan 50 MG Tab PO SCH ×2 (11:15→20:41)
[2017-04-29] MEDS: Apixaban 5 MG Tab PO SCH ×2 (11:16→20:45)
[2017-04-29] MEDS: Aspirin 81 MG Tab.EC PO SCH (11:16)
[2017-04-29] MEDS ORDERED: Sodium Chloride 0.9% 1,000 ML IV SCH (11:30)
--- NOTE | 2017-04-29 12:17 | PCM.PN ---
- General Info Date of Service: 04/29/17 Functional Status: Reports: pain controlled, tolerating diet, ambulating - Review of Systems General: Denies: Fever HEENT: Denies: headaches Pulmonary: Denies: shortness of breath Cardiovascular: Denies: Chest Pain Systems Review Comment:: No acute events overnight. Still a little bit on the confused side but seems to be doing better today. She does not remember who I am from yesterday. Blood pressure control has improved overnight. She has not had any fevers, chest pain or shortness of breath. MRI of the brain showed very minimal chronic small vessel ischemic disease. We were not able to complete the MRA of the renal vessels. - Patient Data Vitals - most recent: Last Vital Signs Temp 35.9 C 04/29/17 10:54 Pulse 66 04/29/17 11:14 Resp 18 04/29/17 10:54 BP 132/94 H 04/29/17 11:15 Pulse Ox 98 04/29/17 10:54 Weight - most recent: 66.9 kg I&O - last 24 hours: Intake & Output 04/28/17 04/29/17 04/29/17 22:59 06:59 14:59 Intake Total 480 500 Balance 480 500 Lab Results last 24 hrs: Laboratory Results - last 24 hr 04/29/17 04/29/17 Range/Units 05:41 05:41 WBC 11.6 H (4.5-11.0) K/uL RBC 3.29 L (3.30-5.50) M/uL Hgb 10.2 L (12.0-15.0) g/dL Hct 31.6 L (36.0-48.0) % MCV 96 (80-98) fL MCH 31 (27-31) pg MCHC 32 (32-36) % Plt Count 134 L (150-400) K/uL Sodium 138 L (140-148) mmol/L Potassium 4.8 (3.6-5.2) mmol/L Chloride 104 (100-108) mmol/L Carbon Dioxide 26 (21-32) mmol/L Anion Gap 12.8 (5.0-14.0) mmol/L BUN 25 H (7-18) mg/dL Creatinine 1.5 H (0.6-1.0) mg/dL Est Cr Clr Drug Dosing 26.80 mL/min Estimated GFR (MDRD) 34 L (>60) Glucose 210 H (74-106) mg/dL Calcium 8.9 (8.5-10.1) mg/dL Digoxin 1.01 (0.90-2.00) ng/mL Med Orders - Current: Current Medications Acetaminophen (Tylenol) 650 mg PO Q4H PRN PRN Reason: Pain (Mild 1-3)/fever Apixaban (Eliquis) 5 mg PO BID [facility] Last Admin: 04/29/17 11:16 Dose: 5 mg Aspirin (Halfprin) 81 mg PO DAILY [facility] Last Admin: 04/29/17 11:16 Dose: 81 mg Brimonidine Tartrate (Alphagan P 0.15% Ophth Soln) 0 ml EYEBOTH BID [facility] Last Admin: 04/29/17 08:57 Dose: 1 drop Carvedilol (Coreg) 12.5 mg PO BID [facility] Last Admin: 04/29/17 11:14 Dose: 12.5 mg Hydralazine HCl (Apresoline) 100 mg PO TID [facility] Last Admin: 04/29/17 11:13 Dose: 100 mg Sodium Chloride (Normal Saline) 1,000 mls @ 100 mls/hr IV ASDIRECTED [facility] Insulin Aspart (Novolog) 4 unit SUBCUT TIDMEALS [facility] Last Admin: 04/29/17 07:42 Dose: 4 units Insulin Aspart (Novolog) 0 unit SUBCUT ASDIRECTED [facility] PRN Reason: Protocol Last Admin: 04/29/17 07:45 Dose: 4 units Lorazepam (Ativan) 0.5 mg PO Q4H PRN PRN Reason: Anxiety Last Admin: 04/29/17 09:07 Dose: 0.5 mg Losartan Potassium (Cozaar) 50 mg PO BID [facility] Last Admin: 04/29/17 11:15 Dose: 50 mg Melatonin (Melatonin) 9 mg PO BEDTIME [facility] Last Admin: 04/28/17 21:17 Dose: 9 mg Ondansetron HCl (Zofran Odt) 4 mg PO Q6H PRN PRN Reason: Nausea able to take PO Pantoprazole Sodium (Protonix) 40 mg PO ACBREAKFAST [facility] Last Admin: 04/29/17 07:42 Dose: 40 mg Polyethylene Glycol (Miralax) 17 gm PO DAILY PRN PRN Reason: Constipation Sodium Chloride (Saline Flush) 10 ml FLUSH ASDIRECTED PRN PRN Reason: Keep Vein Open Timolol Maleate (Timoptic 0.5% Ophth Soln) 0 ml EYEBOTH DAILY [facility] Last Admin: 04/29/17 08:57 Dose: 1 drop Discontinued Medications Apixaban (Eliquis) 5 mg PO BID [facility] Last Admin: 04/28/17 02:17 Dose: Not Given Digoxin (Lanoxin) 125 mcg PO DAILY [facility] Last Admin: 04/28/17 13:26 Dose: Not Given Gadoteridol (Prohance) 15 ml IV .A DIRECTED [facility] Stop: 04/29/17 11:01 Last Admin: 04/29/17 10:23 Dose: 15 ml Hydralazine HCl (Apresoline) 75 mg PO TID [facility] Last Admin: 04/28/17 20:13 Dose: 75 mg Metformin HCl (Glucophage) 500 mg PO DAILY [facility] Patient's Own MedicationEliquis 5mg Tab 1 each PO BID [facility] Last Admin: 04/28/17 00:23 Dose: 1 each - Exam Quality Assessment: No: supplemental oxygen General: alert, oriented, cooperative, no acute distress HEENT: Pupils equal Neck: supple Lungs: Normal respiratory effort Cardiovascular: Regular Rate, Regular Rhythm Abdomen: soft, no distension Extremities: no edema, no cyanosis Skin: warm, dry Psy/Mental Status: alert, normal affect - Problem List & Annotations (1) Delirium due to another medical condition SNOMED Code(s): 9122691 Code(s): F05 - DELIRIUM DUE TO KNOWN PHYSIOLOGICAL CONDITION Status: Acute Current Visit: Yes (2) Accelerated secondary hypertension SNOMED Code(s): 73547057 Code(s): I15.9 - SECONDARY HYPERTENSION, UNSPECIFIED Status: Acute Current Visit: No (3) DM II (diabetes mellitus, type II), controlled SNOMED Code(s): 98389844 Code(s): E11.9 - TYPE 2 DIABETES MELLITUS WITHOUT COMPLICATIONS Status: Chronic Current Visit: No Qualifiers: Diabetes mellitus complication status: with unspecified complications Diabetes mellitus porcelain buildup assistant insulin use: without porcelain buildup assistant use Qualified Code( s): E11.8 - Type 2 diabetes mellitus with unspecified complications - Problem List Review Problem List Initiated/Reviewed/Updated: Yes - My Orders Last 24 Hours: My Active Orders 04/28/17 12:00 Insulin Aspart [NovoLOG] 4 unit SUBCUT TIDMEALS 04/29/17 09:00 hydrALAZINE [Apresoline] 100 mg PO TID 04/29/17 11:30 Sodium Chloride 0.9% [Normal Saline] 1,000 ml IV ASDIRECTED 04/29/17 16:30 GLUCOSE POC LAB TO COLLECT [POC] QIDACANDBED 04/29/17 21:00 GLUCOSE POC LAB TO COLLECT [POC] QIDACANDBED 04/29/17 Breakfast Consistent Carbohydrate Diet [DIET] 04/30/17 05:00 BASIC METABOLIC PANEL,BMP [CHEM] Timed CBC W/O DIFF,HEMOGRAM [HEME] Timed (1) 04/30/17 07:00 Ang Abdomen w Cont [MR] Routine 04/30/17 07:30 GLUCOSE POC LAB TO COLLECT [POC] QIDACANDBED 04/30/17 11:30 GLUCOSE POC LAB TO COLLECT [POC] QIDACANDBED 04/30/17 16:30 GLUCOSE POC LAB TO COLLECT [POC] QIDACANDBED 04/30/17 21:00 GLUCOSE POC LAB TO COLLECT [POC] QIDACANDBED 05/01/17 07:30 GLUCOSE POC LAB TO COLLECT [POC] QIDACANDBED 05/01/17 11:30 GLUCOSE POC LAB TO COLLECT [POC] QIDACANDBED 05/01/17 16:30 GLUCOSE POC LAB TO COLLECT [POC] QIDACANDBED 05/01/17 21:00 GLUCOSE POC LAB TO COLLECT [POC] QIDACANDBED 05/02/17 07:30 GLUCOSE POC LAB TO COLLECT [POC] QIDACANDBED 05/02/17 11:30 GLUCOSE POC LAB TO COLLECT [POC] QIDACANDBED 05/02/17 16:30 GLUCOSE POC LAB TO COLLECT [POC] QIDACANDBED 05/02/17 21:00 GLUCOSE POC LAB TO COLLECT [POC] QIDACANDBED 05/03/17 07:30 GLUCOSE POC LAB TO COLLECT [POC] QIDACANDBED 05/03/17 11:30 GLUCOSE POC LAB TO COLLECT [POC] QIDACANDBED 05/03/17 16:30 GLUCOSE POC LAB TO COLLECT [POC] QIDACANDBED - Plan Plan:: Assessment and plan - Accelerated hypertension - we have achieved a much better blood pressure control in the past 24 hours. MR angiogram of the renal vessels is still pending. -Continue losartan, carvedilol -Increase hydralazine to 100 mg 3 times a day -Close monitoring of blood pressures -Gentle fluids throughout the day with dye load given this morning -MRA of the renal arteries in the morning Delirium - recent head CT was normal, suspect hypertensive encephalopathy. Seems a little bit more clear again today but still has obvious deficits. MRI of the brain was normal. I don't believe she is fit to make her own decisions at this time with this level of confusion and memory impairment. -Blood pressure control as above -Lorazepam as needed for anxiety Chronic atrial fibrillation - well rate controlled. Chronically anticoagulated. -Continue home medications Maintenance issues - - DVT prophylaxis - Apixaban - GI prophylaxis - PPI - Nutrition - low sodium diet Disposition - anticipate discharge home after the hospital stay, likely with home health care. [facility] versus assisted living could be considered given her memory impairment but the patient is not interested in this option. Yousif Schroeder M.D.
[2017-04-29] MEDS: Melatonin 3 MG Tab PO SCH (20:41)
[2017-04-30] MEDS: LORazepam 0.5 MG Tab PO PRN (08:13)
[2017-04-30] MEDS ORDERED: Gadoteridol 279.3 MG/ML 15 ML SDV IV PRN (08:30)
[2017-04-30] MEDS: Pantoprazole 40 MG Tab.CR PO SCH (09:10)
[2017-04-30] MEDS: BRIMONIDINE 0.15% EYEBOTH SCH (09:10)
[2017-04-30] MEDS: hydrALAZINE 25 MG Tab PO SCH ×2 (09:10→13:52)
[2017-04-30] MEDS: Losartan 50 MG Tab PO SCH (09:11)
[2017-04-30] MEDS: Aspirin 81 MG Tab.EC PO SCH (09:11)
[2017-04-30] MEDS: Carvedilol 12.5 MG Tab PO SCH (09:11)
[2017-04-30] MEDS: Apixaban 5 MG Tab PO SCH (09:11)
[2017-04-30] MEDS: Insulin Aspart 100 Units/ML 3 ML Pen SUBCUT SCH ×4 (09:15→12:00)
--- NOTE | 2017-04-30 09:23 | MR ---
Renal MRA. History: Accelerated hypertension. Technique: Routine MRA sequences. 3-D MIP images are included. Findings: The kidneys are asymmetric in size. There is right renal atrophy. The right kidney measure s 7.8 cm in length. The left kidney measures 11.7 cm. There is renal cortical thinning on the right. The kidneys demonstrate no hydronephrosis. There is mild plaque throughout the abdominal aorta. There is significant plaque involving the origi ns of the renal arteries bilaterally. The degree of stenosis appears severe bilaterally. The celiac and superior mesenteric arteries are patent. The aorta demonstrates no stenosis. The common iliac ar teries are normal in caliber. The internal and external iliac arteries are patent bilaterally. Small pleural effusions are demonstrated. The liver demonstrates no abnormalities. There are no abno rmalities of the pancreas. The spleen is normal in size. Impression: 1. Right renal atrophy with cortical thinning. 2. Severe renal artery stenosis bilaterally. There are high-grade stenoses at the origins of both re nal arteries. Recommend correlation with prior studies. 3. Small bilateral pleural effusions.
--- NOTE | 2017-04-30 10:25 | PCM.DCSUM1 ---
Discharge Summary - Hospital Course Brief History: 76-year-old female with history of secondary hypertension who presented with accelerated hypertension and was admitted for additional management. - Discharge Data Discharge Date: 04/30/17 Discharge Disposition: Home, W Home Health Agency 06 Condition: Good - Discharge Diagnosis/Problem(s) (1) Renal artery stenosis, [place], bilateral SNOMED Code(s): 163944221 ICD Code: I70.1 - ATHEROSCLEROSIS OF RENAL ARTERY Status: Acute Current Visit: Yes (2) Accelerated secondary hypertension SNOMED Code(s): 35517401 ICD Code: I15.9 - SECONDARY HYPERTENSION, UNSPECIFIED Status: Acute Current Visit: No (3) Delirium due to another medical condition SNOMED Code(s): 4590272 ICD Code: F05 - DELIRIUM DUE TO KNOWN PHYSIOLOGICAL CONDITION Status: Acute Current Visit: Yes (4) DM II (diabetes mellitus, type II), controlled SNOMED Code(s): 34914927 ICD Code: E11.9 - TYPE 2 DIABETES MELLITUS WITHOUT COMPLICATIONS Status: Chronic Current Visit: No Qualifiers: Diabetes mellitus complication status: with unspecified complications Diabetes mellitus manufacturing weaver insulin use: without manufacturing weaver use Qualified Code( s): E11.8 - Type 2 diabetes mellitus with unspecified complications - Patient Summary/Data Hospital Course: Joselin presented to the emergency room with accelerated hypertension shortly after hospital discharge. Blood pressures in the emergency room were noted to be in the 230 range systolically. She was readmitted to the hospital and I did increase her hydralazine from 75 to 100 mg. Blood pressure since the time of hospital admission have been very acceptable. We did complete an MRA of her renal arteries and this showed severe ostial stenosis of both renal arteries. I called and discussed the case with Dr. Rojas of interventional radiology at [facility] in [place]. He reviewed the images and recommended outpatient follow-up and further discussion about intervention. Fortunately we were able to schedule for her appointment tomorrow, the day after discharge. She will be traveling to [place] for consultation and hopefully intervention. I suspect once the renal artery stenosis has improved that we will be able to decrease her medications significantly. Her blood pressures have been stable for 48 hours and I believe she is safe for hospital discharge at this time. There is some concern about her safety at home. She has had some periods of confusion with her accelerated hypertension. I am hopeful that with better blood pressure control that her mental status will return to normal. She will be monitored by home health care services after hospital discharge. Her family has been updated regarding the situation and will be providing support as they' re able. She is fortunate to have friends will also be helping to transport her to the clinic appointment tomorrow. She would benefit from clinic follow-up with Dr. Gomez after interventional radiology visit and hopefully intervention. - Patient Instructions Diet: Heart Healthy Diet Activity: As Tolerated Showering/Bathing: May Shower Notify Provider of: Fever, Increased Pain, Nausea and/or Vomiting Other/Special Instructions: 1. You were in the hospital for management of accelerated hypertension caused by bilateral renal artery stenosis. We have adjusted your hydralazine and that and acceptable blood pressure control. You should increase your hydralazine to 100 mg ( 2 full tablets ) 3 times daily. I did discuss the blockages of the renal arteriesand with Dr. Rojas of Interventional Radiology at [facility] in [place]. He recommended a clinic visit tomorrow, May 01 at 1 PM to discuss treatment. This visit will take place on the second floor of the clinic at the [address] [place] [address]. This clinic is part of the hospital on the [facility] side [facility]. 2. Referral and resumption of services with home health services for ongoing blood pressure monitoring and medication setup. This will be through [facility] home care. 3. Please seek medical attention if you develop fever greater than 101, have sudden onset of headache, blurry vision, shortness of breath or chest pain. - Discharge Plan Prescriptions/Med Rec: hydrALAZINE [Apresoline] 100 mg PO TID #135 tab Home Medications: Home Meds Apixaban [Eliquis] 5 mg PO BID 04/24/17 [History] Aspirin [Halfprin] 81 mg PO DAILY 04/24/17 [History] Brimonidine [Alphagan P 0.15% Ophth Soln] 1 drop EYEBOTH BID 04/24/17 [History] Carvedilol 12.5 mg PO BID 04/24/17 [History] Digoxin 125 mcg PO DAILY 04/24/17 [History] Insulin Aspart [Novolog Flexpen] 4 units SUBCUT TID 04/24/17 [History] Losartan [Cozaar] 50 mg PO BID 04/24/17 [History] Pantoprazole [ProTONIX] 40 mg PO DAILY 04/24/17 [History] Timolol Maleate/PF [Timoptic 0.5% Ocudose Drop] 1 drop EYEBOTH DAILY 04/24/17 [ History] metFORMIN [Glucophage] 500 mg PO DAILY 04/24/17 [History] hydrALAZINE [Apresoline] 100 mg PO TID #135 tab 04/30/17 [Rx] Patient Handouts: Renal Artery Stenosis Referrals: Marcin Gomez MD [Primary Care Provider] - (Follow up with [facility] in [place] SaturdayMay 01 @ 1300 Resume home care.) - Discharge Summary/Plan Comment DC Time >30 min.: Yes (40 - coordinating outpatient followup and additional treatment) - Patient Data Vitals - Most Recent: Last Vital Signs Temp 36.9 C 04/30/17 07:00 Pulse 72 04/30/17 09:11 Resp 18 04/30/17 07:00 BP 160/92 H 04/30/17 09:11 Pulse Ox 95 04/30/17 07:00 Weight - Most Recent: 66.9 kg Lab Results - Last 24 hrs: Laboratory Results - last 24 hr 04/30/17 04/30/17 Range/Units 05:00 05:00 WBC 11.2 H (4.5-11.0) K/uL RBC 2.99 L (3.30-5.50) M/uL Hgb 9.3 L (12.0-15.0) g/dL Hct 28.9 L (36.0-48.0) % MCV 97 (80-98) fL MCH 31 (27-31) pg MCHC 32 (32-36) % Plt Count 135 L (150-400) K/uL Sodium 136 L (140-148) mmol/L Potassium 4.4 (3.6-5.2) mmol/L Chloride 104 (100-108) mmol/L Carbon Dioxide 24 (21-32) mmol/L Anion Gap 12.4 (5.0-14.0) mmol/L BUN 25 H (7-18) mg/dL Creatinine 1.4 H (0.6-1.0) mg/dL Est Cr Clr Drug Dosing 28.71 mL/min Estimated GFR (MDRD) 37 L (>60) Glucose 170 H (74-106) mg/dL Calcium 8.5 (8.5-10.1) mg/dL Med Orders - Current: Current Medications Acetaminophen (Tylenol) 650 mg PO Q4H PRN PRN Reason: Pain (Mild 1-3)/fever Apixaban (Eliquis) 5 mg PO BID [facility] Last Admin: 04/30/17 09:11 Dose: 5 mg Aspirin (Halfprin) 81 mg PO DAILY [facility] Last Admin: 04/30/17 09:11 Dose: 81 mg Brimonidine Tartrate (Alphagan P 0.15% Ophth Soln) 0 ml EYEBOTH BID [facility] Last Admin: 04/30/17 09:10 Dose: 1 drop Carvedilol (Coreg) 12.5 mg PO BID [facility] Last Admin: 04/30/17 09:11 Dose: 12.5 mg Hydralazine HCl (Apresoline) 100 mg PO TID [facility] Last Admin: 04/30/17 09:10 Dose: 100 mg Insulin Aspart (Novolog) 4 unit SUBCUT TIDMEALS [facility] Last Admin: 04/30/17 09:15 Dose: 4 units Insulin Aspart (Novolog) 0 unit SUBCUT ASDIRECTED [facility] PRN Reason: Protocol Last Admin: 04/30/17 09:16 Dose: 2 units Lorazepam (Ativan) 0.5 mg PO Q4H PRN PRN Reason: Anxiety Last Admin: 04/30/17 08:13 Dose: 0.5 mg Losartan Potassium (Cozaar) 50 mg PO BID [facility] Last Admin: 04/30/17 09:11 Dose: 50 mg Melatonin (Melatonin) 9 mg PO BEDTIME [facility] Last Admin: 04/29/17 20:41 Dose: 9 mg Ondansetron HCl (Zofran Odt) 4 mg PO Q6H PRN PRN Reason: Nausea able to take PO Pantoprazole Sodium (Protonix) 40 mg PO ACBREAKFAST [facility] Last Admin: 04/30/17 09:10 Dose: 40 mg Polyethylene Glycol (Miralax) 17 gm PO DAILY PRN PRN Reason: Constipation Sodium Chloride (Saline Flush) 10 ml FLUSH ASDIRECTED PRN PRN Reason: Keep Vein Open Timolol Maleate (Timoptic 0.5% Ophth Soln) 0 ml EYEBOTH DAILY [facility] Last Admin: 04/30/17 09:12 Dose: 1 drop Discontinued Medications Apixaban (Eliquis) 5 mg PO BID [facility] Last Admin: 04/28/17 02:17 Dose: Not Given Digoxin (Lanoxin) 125 mcg PO DAILY [facility] Last Admin: 04/28/17 13:26 Dose: Not Given Gadoteridol (Prohance) 15 ml IV .A DIRECTED MARITO Stop: 04/29/17 11:01 Last Admin: 04/29/17 10:23 Dose: 15 ml Gadoteridol (Prohance) 15 ml IV .A DIRECTED PRN PRN Reason: RADIOLOGY EXAM Stop: 04/30/17 10:00 Last Admin: 04/30/17 08:47 Dose: 15 ml Hydralazine HCl (Apresoline) 75 mg PO TID [facility] Last Admin: 04/28/17 20:13 Dose: 75 mg Sodium Chloride (Normal Saline) 1,000 mls @ 100 mls/hr IV ASDIRECTED [facility] Metformin HCl (Glucophage) 500 mg PO DAILY [facility] Patient's Own MedicationEliquis 5mg Tab 1 each PO BID [facility] Last Admin: 04/28/17 00:23 Dose: 1 each *Q Meaningful Use (DIS) - VTE *Q VTE Criteria *Q: - Stroke *Q Stroke Criteria *Q: - AMI *Q AMI Criteria *Q:
[2017-04-30 13:27] VITALS: BP 178/87
== END 2017-04-30 16:22 | disposition home health service (06) | DRG 699 ==
LOC: JP.ED 18:33 → JP.MS 20:47
PROVIDERS: ADMIT Internal Medicine; ATTEND Internal Medicine
DX: I70.1 Atherosclerosis of renal artery (principal); F05 Delirium due to known physiological condition; I15.0 Renovascular hypertension; E11.9 Type 2 diabetes mellitus without complications; Z79.4 Long term (current) use of insulin; I48.2 Chronic atrial fibrillation; H40.9 Unspecified glaucoma; K21.9 Gastro-esophageal reflux disease without esophagitis; Z87.440 Personal history of urinary (tract) infections; Z79.82 Long term (current) use of aspirin; Z88.8 Allergy status to other drugs, medicaments and biological substances
CPT/HCPCS: 36415; 70551; 70551-26; 74185; 74185-26; 80048; 80053; 80162; 81001; 82962; 83735; 85025; 85027; 85651; 99281; 99284; A9270-GY; A9576

== ENCOUNTER 2017-05-04 16:56 | Emergency (ER) | payer MEDICARE, BC ==
--- NOTE | 2017-05-04 18:19 | EDM.PDOC ---
[id number]: ILLNESS BLOOD PRESSURE Time Seen by Provider: 05/04/17 17:25 Source of Information: Reports: Patient, Family History Limitations: Reports: No Limitations - History of Present Illness INITIAL COMMENTS - FREE TEXT/NARRATIVE: 76-year-old female with known renal artery stenosis is in again with refractory systolic hypertension. While hospitalized twice over the past 3 weeks she had fairly good control when taking her medicines appropriately, however her systolic blood pressure again today is over 200 and she is feeling confused and nauseous. She is not taking her medications appropriately partly because of confusion and partly because of the nausea. She arrived with an initial blood pressure of 220/100, I discussed this with the hospitalist who has taken care of her twice in the last 3 weeks and he feels is time for her to go to the [facility] hospital where she is scheduled to get her renal arteries opened later this week. Severity: Moderate Associated Symptoms: Reports: Confusion (Intermittent), Nausea/Vomiting - Related Data Allergies Allergy/AdvReac Type Severity Reaction Status Date / Time atorvastatin [From Lipitor] Allergy Dizziness Verified 05/04/17 17:18 Home Meds: Home Meds Apixaban [Eliquis] 5 mg PO BID 04/24/17 [History] Aspirin [Halfprin] 81 mg PO DAILY 04/24/17 [History] Brimonidine [Alphagan P 0.15% Ophth Soln] 1 drop EYEBOTH BID 04/24/17 [History] Carvedilol 12.5 mg PO BID 04/24/17 [History] Digoxin 125 mcg PO DAILY 04/24/17 [History] Insulin Aspart [Novolog Flexpen] 4 units SUBCUT TID 04/24/17 [History] Losartan [Cozaar] 50 mg PO BID 04/24/17 [History] Pantoprazole [ProTONIX] 40 mg PO DAILY 04/24/17 [History] Timolol Maleate/PF [Timoptic 0.5% Ocudose Drop] 1 drop EYEBOTH DAILY 04/24/17 [ History] metFORMIN [Glucophage] 500 mg PO DAILY 04/24/17 [History] hydrALAZINE [Apresoline] 100 mg PO TID #135 tab 04/30/17 [Rx] Past Medical History HEENT History: Reports: Glaucoma Cardiovascular History: Reports: Afib, Hypertension Gastrointestinal History: Reports: GERD Genitourinary History: Reports: UTI, Recurrent Other Genitourinary History: severe renal stenosis Endocrine/Metabolic History: Reports: Diabetes, Type II - Infectious Disease History Infectious Disease History: Reports: Chicken Pox, Measles, Mumps - Past Surgical History GI Surgical History: Reports: Appendectomy, Cholecystectomy, Colostomy Social & Family History - Family History Neurological: Reports: MS - Tobacco Use Smoking Status *Q: Never Smoker Second Hand Smoke Exposure: No - Caffeine Use Caffeine Use: Reports: None - Recreational Drug Use Recreational Drug Use: No ED ROS GENERAL - Review of Systems Review Of Systems: See Below Constitutional: Reports: Malaise. Denies: Fever, Chills Respiratory: Denies: Shortness of Breath, Cough, Hemoptysis Cardiovascular: Denies: Chest Pain GI/Abdominal: Reports: Nausea, Vomiting. Denies: Abdominal Pain : Reports: No Symptoms Skin: Reports: No Symptoms Neurological: Reports: Dizziness, Headache Psychiatric: Reports: Confusion ED EXAM, GENERAL - Physical Exam Exam: See Below Exam Limited By: No Limitations General Appearance: Alert, No Apparent Distress Eye Exam: Bilateral Eye: EOMI Respiratory/Chest: No Respiratory Distress, Lungs Clear Cardiovascular: Irregularly Irregular GI/Abdominal: Soft, Non-Tender Extremities: Pedal Edema (1+ symmetric lower extremity edema) Neurological: Alert, No Motor/Sensory Deficits Psychiatric: Depressed Mood, Flat Affect Skin Exam: Warm, Dry Course - Vital Signs Last Recorded V/S: Last Vital Signs Temp 95.5 F 05/04/17 18:58 Pulse 76 05/04/17 18:58 Resp 18 05/04/17 18:58 BP 226/104 H 05/04/17 19:15 Pulse Ox 99 05/04/17 18:58 - Orders/Labs/Meds Labs: Laboratory Tests 05/04/17 05/04/17 Range/Units 17:36 17:36 WBC 9.6 (4.5-11.0) K/uL RBC 3.16 L (3.30-5.50) M/uL Hgb 9.9 L (12.0-15.0) g/dL Hct 30.5 L (36.0-48.0) % MCV 97 (80-98) fL MCH 31 (27-31) pg MCHC 33 (32-36) % Plt Count 201 (150-400) K/uL Neut % (Auto) 87 H (36-66) % Lymph % (Auto) 6 L (24-44) % [place] % (Auto) 5 (2-6) % Eos % (Auto) 1 L (2-4) % Baso % (Auto) 0 (0-1) % Sodium 131 L (140-148) mmol/L Potassium 5.3 H (3.6-5.2) mmol/L Chloride 99 L (100-108) mmol/L Carbon Dioxide 21 (21-32) mmol/L Anion Gap 16.3 H (5.0-14.0) mmol/L BUN 39 H D (7-18) mg/dL Creatinine 2.3 H D (0.6-1.0) mg/dL Est Cr Clr Drug Dosing 17.48 mL/min Estimated GFR (MDRD) 21 L (>60) Glucose 129 H (74-106) mg/dL Calcium 9.1 (8.5-10.1) mg/dL Meds: Medications Discontinued Medications Generic Name Dose Route Start Last Admin Trade Name Freq PRN Reason Stop Dose Admin Nitroglycerin/Dextrose 25 mg in 250 mls @ 6 mls/hr 05/04/17 19:00 05/04/17 19 :15 Nitroglycerin 25 Mg/D5w 250 Ml IV 10 mcg/min TITRATE MARITO 6 mls/hr Protocol Administration 10 MCG/MIN - Re-Assessments/Exams Free Text/Narrative Re-Assessment/Exam: 05/04/17 18:19 Blood pressure was monitored, CBC and BMP were obtained. 05/04/17 18:47 Systolic blood pressure remained over 200. BMP revealed a creatinine of 2.5, significantly elevated from 4 days previous at 1.4. Patient continued to be nauseous and had a mild headache. Her condition was discussed with the hospitalist service and they recommended transfer to a tertiary hospital where interventional radiology is available. She was started on a low-dose nitroglycerin drip at [address] Soto, [facility] in [place] kindly accepted transfer. Departure - Departure Time of Disposition: 19:55 Disposition: DC/Tfer to Other 70 Reason for Transfer *Q: Other Condition: fair Clinical Impression: Renal artery stenosis, [place], bilateral, Accelerated secondary hypertension Referrals: Marcin Gomez MD [Primary Care Provider] - Forms: ED Department Discharge Care Plan Goals: Patient will be transferred to [facility] for control of accelerated systolic hypertension due to renal artery stenosis.
[2017-05-04] MEDS ORDERED: Nitroglycerin/D5W 25 MG/250 ML BOTTLE IV SCH (19:00)
[2017-05-04 19:20] VITALS: BP 226/104
== END 2017-05-04 19:25 | disposition other institution (70) ==
LOC: JP.ED 16:56
DX: I70.1 Atherosclerosis of renal artery (principal); I15.9 Secondary hypertension, unspecified; I48.91 Unspecified atrial fibrillation; K21.9 Gastro-esophageal reflux disease without esophagitis; E11.9 Type 2 diabetes mellitus without complications; Z90.49 Acquired absence of other specified parts of digestive tract; Z79.82 Long term (current) use of aspirin; Z79.4 Long term (current) use of insulin; Z79.84 Long term (current) use of oral hypoglycemic drugs; Z79.899 Other long term (current) drug therapy; Z88.8 Allergy status to other drugs, medicaments and biological substances; Z87.440 Personal history of urinary (tract) infections
CPT/HCPCS: 36415; 80048; 85025; 93005; 93010; 99284

== ENCOUNTER 2017-05-22 21:22 | Emergency (ER) | payer MEDICARE, BC ==
[2017-05-22] MEDS ORDERED: Sodium Chloride 0.9% 1,000 ML IV SCH (22:45)
[2017-05-22] MEDS ORDERED: HYDROmorphone 0.5 MG/0.5 ML Syringe IVPUSH ONE (23:41)
[2017-05-22 23:45] VITALS: BP 150/84
--- NOTE | 2017-05-22 23:48 | EDM.PDOC ---
ED HPI GENERAL MEDICAL PROBLEM - General Chief Complaint: General Stated Complaint: MED VIA [facility] Time Seen by Provider: 05/22/17 21:30 Source of Information: Reports: Patient, Family History Limitations: Reports: Altered Mental Status - History of Present Illness INITIAL COMMENTS - FREE TEXT/NARRATIVE: History of present illness: [77-year-old female presenting with a somewhat complicated history but essentially over the last couple months she is becoming more and more confused he has been falling more. She lives alone. She has bilateral renal artery stenosis that she says needs to be stented but she was trying to get that arranged to be done in [place] where she plans to move next week. Tonight she fell backwards striking her head and the of her granddaughter who lives right below her heard the fall and ran up to check on her and found her down on the floor awake but not responding. Ambulance arrived and brought her in and by the time she arrived here she was talking but confused. She has a tendency to repeat herself. She complains of a mild headache but denies any visual disturbance denies any recent fever chills cough cold symptoms shortness of breath or chest pain. His no the patient is on Eliquis. ] Review of systems: As per history of present illness and below otherwise all systems reviewed and negative. Past medical history: As per history of present illness and as reviewed below otherwise noncontributory. Surgical history: As per history of present illness and as reviewed below otherwise noncontributory. Social history: No reported history of drug or alcohol abuse. Family history: As per history of present illness and as reviewed below otherwise noncontributory. Physical exam: HEENT: She has a posterior subcutaneous hematoma where she struck her head pupils were equal round reactive to light extraocular movements appear to be intact and displayed no nystagmus. Oral exam is unremarkable her neck is nontender Lungs: She has decreased breath sounds the bases Heart: Heart is irregular rate and rhythm due to underlying known A. fib. She does have a 1 or 2/6 systolic ejection murmur Abdomen: Soft, nondistended, nontender. Negative for masses or hepatosplenomegaly. Negative for costovertebral tenderness. Pelvis: Stable nontender. Genitourinary: Deferred. Rectal: Deferred. Back examination does reveal several bruises that appear to have it occurred at least within the last week. These are concentrated on the left side of her back. Extremities: Atraumatic, negative for cords or calf pain. Neurovascular unremarkable. Neuro: Awake, alert, but somewhat slow to answer questions and she does have a tendency to repeat herself she's moving all extremities and exhibits no facial asymmetry Diagnostics: [Head neck and chest CT were done the head that showed acute small subdural hematoma with minimal midline shift. The next CT was negative the chest is showing bilateral pleural effusions. Please see the reports for details. She also has a hemoglobin of 8.6 and her sodium is 119. Her BUN/creatinine are elevated but I don't know her baseline but I suspect that this is probably associate sales representative of her baseline and he essentially in [place] should have a recent BUN/creatinine are skin be compared to.] Therapeutics: [Patient is receiving IV normal saline at 100 mL per hour in I'm providing a half a milligram of Dilaudid for her headache.] Impression: [Acute subdural hematoma Anemia Hyponatremia Confusion Fall risk Bilateral renal artery stenosis See old records for other problems that she has.] Plan: [We've made arrangements to transfer to [facility] Dr. Soto is the accepting physician. She will go by ground ALS.] Definitive disposition and diagnosis as appropriate pending reevaluation and review of above. - Related Data Allergies Allergy/AdvReac Type Severity Reaction Status Date / Time atorvastatin [From Lipitor] Allergy Dizziness Verified 05/04/17 17:18 Home Meds: Home Meds Apixaban [Eliquis] 5 mg PO BID 04/24/17 [History] Aspirin [Halfprin] 81 mg PO DAILY 04/24/17 [History] Brimonidine [Alphagan P 0.15% Ophth Soln] 1 drop EYEBOTH BID 04/24/17 [History] Carvedilol 12.5 mg PO BID 04/24/17 [History] Insulin Aspart [Novolog Flexpen] 4 units SUBCUT TID 04/24/17 [History] Pantoprazole [ProTONIX] 40 mg PO DAILY 04/24/17 [History] Timolol Maleate/PF [Timoptic 0.5% Ocudose Drop] 1 drop EYEBOTH DAILY 04/24/17 [ History] hydrALAZINE [Apresoline] 100 mg PO TID #135 tab 04/30/17 [Rx] Furosemide [Lasix] 20 mg PO DAILY 05/22/17 [History] Sodium Bicarbonate 650 mg PO DAILY 05/22/17 [History] atorvaSTATin [Lipitor] 80 mg PO DAILY 05/22/17 [History] Past Medical History HEENT History: Reports: Glaucoma Cardiovascular History: Reports: Afib, Hypertension Gastrointestinal History: Reports: GERD Genitourinary History: Reports: UTI, Recurrent Other Genitourinary History: severe renal stenosis Endocrine/Metabolic History: Reports: Diabetes, Type II - Infectious Disease History Infectious Disease History: Reports: Chicken Pox, Measles, Mumps - Past Surgical History GI Surgical History: Reports: Appendectomy, Cholecystectomy, Colostomy Social & Family History - Family History Neurological: Reports: MS - Tobacco Use Smoking Status *Q: Never Smoker Second Hand Smoke Exposure: No - Caffeine Use Caffeine Use: Reports: None - Recreational Drug Use Recreational Drug Use: No ED ROS GENERAL - Review of Systems Review Of Systems: ROS reveals no pertinent complaints other than HPI. ED EXAM, GENERAL - Physical Exam Exam: See Below Course - Vital Signs Last Recorded V/S: Last Vital Signs Temp 35.8 C 05/22/17 21:23 Pulse 67 05/22/17 21:23 Resp 16 05/22/17 21:23 BP 137/72 05/22/17 21:23 Pulse Ox 94 L 05/22/17 21:23 - Orders/Labs/Meds Orders: Active Orders 24 hr Category Date Time Status Cervical Spine wo Cont [CT] Stat Exams 05/22/17 21:44 Taken Chest 1V Frontal [CR] Stat Exams 05/22/17 21:44 Taken Chest wo Cont [CT] Stat Exams 05/22/17 22:33 Taken Head wo Cont [CT] Stat Exams 05/22/17 21:44 Taken Sodium Chloride 0.9% [Normal Saline] 1,000 ml Med 05/22/17 22:45 Active IV ASDIRECTED Medication Orders Sodium Chloride (Normal Saline) 1,000 mls @ 100 mls/hr IV ASDIRECTED MARITO Labs: Laboratory Tests 05/22/17 05/22/17 Range/Units 21:45 21:45 WBC 8.0 (4.5-11.0) K/uL RBC 2.76 L (3.30-5.50) M/uL Hgb 8.6 L (12.0-15.0) g/dL Hct 25.7 L (36.0-48.0) % MCV 93 (80-98) fL MCH 31 (27-31) pg MCHC 34 (32-36) % Plt Count 137 L (150-400) K/uL Neut % (Auto) 81 H (36-66) % Lymph % (Auto) 8 L (24-44) % [place] % (Auto) 10 H (2-6) % Eos % (Auto) 1 L (2-4) % Baso % (Auto) 0 (0-1) % Sodium 119 L* (140-148) mmol/L Potassium 3.9 (3.6-5.2) mmol/L Chloride 86 L (100-108) mmol/L Carbon Dioxide 23 (21-32) mmol/L Anion Gap 13.9 (5.0-14.0) mmol/L BUN 41 H (7-18) mg/dL Creatinine 2.1 H (0.6-1.0) mg/dL Est Cr Clr Drug Dosing 18.85 mL/min Estimated GFR (MDRD) 23 L (>60) Glucose 81 (74-106) mg/dL Calcium 8.9 (8.5-10.1) mg/dL Total Bilirubin 1.2 H D (0.2-1.0) mg/dL AST 27 (15-37) U/L ALT 28 (12-78) U/L Alkaline Phosphatase 104 (46-116) U/L Total Protein 6.0 L (6.4-8.2) g/dL Albumin 3.2 L (3.4-5.0) g/dL Globulin 2.8 (2.3-3.5) g/dL Albumin/Globulin Ratio 1.1 L (1.2-2.2) Meds: Medications Generic Name Dose Route Start Last Admin Trade Name Freq PRN Reason Stop Dose Admin Sodium Chloride 1,000 mls @ 100 mls/hr 05/22/17 22:45 Normal Saline IV ASDIRECTED MARITO Departure - Departure Time of Disposition: 23:48 Disposition: DC/Tfer to Acute Hospital 02 Condition: Poor Clinical Impression: Hyponatremia, Bilateral renal artery stenosis, Pleural effusion, bilateral, Risk for falls Subdural hematoma caused by concussion Qualifiers: Encounter type: initial encounter Loss of consciousness presence/duration: with LOC of 30 min or less Qualified Code(s): S06.5X1A - Traumatic subdural hemorrhage with loss of consciousness of 30 minutes or less, initial encounter Anemia Qualifiers: Anemia type: unspecified type Qualified Code(s): D64.9 - Anemia, unspecified - Discharge Information Forms: ED Department Discharge - My Orders Last 24 Hours: My Active Orders 05/22/17 21:44 Cervical Spine wo Cont [CT] Stat Chest 1V Frontal [CR] Stat Head wo Cont [CT] Stat 05/22/17 22:33 Chest wo Cont [CT] Stat 05/22/17 22:45 Sodium Chloride 0.9% [Normal Saline] 1,000 ml IV ASDIRECTED - Assessment/Plan Last 24 Hours: My Active Orders 05/22/17 21:44 Cervical Spine wo Cont [CT] Stat Chest 1V Frontal [CR] Stat Head wo Cont [CT] Stat 05/22/17 22:33 Chest wo Cont [CT] Stat 05/22/17 22:45 Sodium Chloride 0.9% [Normal Saline] 1,000 ml IV ASDIRECTED
[2017-05-22] MEDS ORDERED: Ondansetron 4 MG/2 ML SDV IVPUSH ONE (23:55)
[2017-05-23] MEDS ORDERED: Naloxone 0.4 MG/ML SDV ONE (00:36)
[2017-05-23] MEDS ORDERED: Naloxone 0.4 MG/ML SDV IVPUSH PRN ×2 (00:37→00:51)
--- NOTE | 2017-05-23 09:42 | CR ---
Chest 1V Frontal HISTORY: Fall, pain. COMPARISON: None FINDINGS: Bilateral pleural effusions greater on the right. Mild cardiomegaly. No acute congestive c hange or dense infiltrate. No pneumothorax. No bony abdomen is seen.
== END 2017-05-23 01:08 ==
LOC: JP.ED 21:22
DX: S06.5X1A Traumatic subdural hemorrhage with loss of consciousness of 30 minutes or less, initial encounter (principal); J90 Pleural effusion, not elsewhere classified; E87.1 Hypo-osmolality and hyponatremia; D64.9 Anemia, unspecified; I70.1 Atherosclerosis of renal artery; E11.9 Type 2 diabetes mellitus without complications; I10 Essential (primary) hypertension; K21.9 Gastro-esophageal reflux disease without esophagitis; Z91.81 History of falling; Z79.4 Long term (current) use of insulin; Z90.49 Acquired absence of other specified parts of digestive tract; Z98.890 Other specified postprocedural states; Z79.82 Long term (current) use of aspirin; Z79.899 Other long term (current) drug therapy; Z88.8 Allergy status to other drugs, medicaments and biological substances; W19.XXXA Unspecified fall, initial encounter
CPT/HCPCS: 36415; 51702; 70450; 71010; 71250; 72125; 80053; 85025; 99285; J1170; J2310; J2405; J7040